=== PATIENT | male | born 1970 | race Caucasian/White ===

== ENCOUNTER 2020-11-19 00:42 | Emergency (ER) | payer MEDICAID ==
[~2020-11-19] VITALS: Ht 170.2 cm; Wt 78.6 kg
[~2020-11-19 00:42] MED LIST: AMLO-257 PO; DOXY100C PO; PHOSLOC PO
[2020-11-19 01:16] LABS: BASOPHILS % (AUTO) 0.5 % (0.0-2.0); EOSINOPHILS % (AUTO) 0.4 % (1.0-6.0); HEMOGLOBIN 12.5 g/dL (13.5-17.5); LYMPHOCYTES # (AUTO) 1.9 K/uL (1.0-4.8); LYMPHOCYTES % (AUTO) 17.4 % (22.0-44.0); MEAN CORPUSCULAR HEMOGLOBIN 27.4 pg (26.0-34.0); MEAN CORPUSCULAR HGB CONC 33.8 G/dL (31.0-37.0); MEAN CORPUSCULAR VOLUME 81 fL (80-100); MONOCYTES # (AUTO) 1.3 K/uL (0.1-1.0); MONOCYTES % (AUTO) 11.9 % (2.0-9.0); NEUTROPHILS # (AUTO) 7.4 K/uL (1.8-7.7); NEUTROPHILS % (AUTO) 69.8 % (40.0-70.0); PLATELET COUNT (AUTO) 298 K/uL (150-450); RED BLOOD CELL COUNT(AUTO) 4.57 MIL/uL (4.50-5.90); RED CELL DISTRIBUTION WIDTH 14.3 % (11.5-14.5)
[2020-11-19] MEDS: ACETAMINOPHEN 500 MG TABLET PO ONE ×2 (01:22→01:46)
[2020-11-19 01:30] LABS: ANION GAP 14 mmol/L (8-16); CALCIUM, TOTAL 9.2 mg/dL (8.8-10.5); CARBON DIOXIDE 24 mmol/L (22-29); CHLORIDE 101 mmol/L (98-107); GLOMERULAR FILTR. RATE CALC > 60 mL/min (>60); GLUCOSE,RANDOM 101 mg/dL (70-110); POTASSIUM 3.6 mmol/L (3.5-5.1); SODIUM SERUM 139 mmol/L (136-145); UREA NITROGEN, BLOOD 24 mg/dL (7-18)
[2020-11-19] MEDS ORDERED: LIDOCAINE 5% TRANSDERMAL PATCH TD ONE (01:30)
[2020-11-19] MEDS ORDERED: KETOROLAC TROMETHAMINE 30 MG/ML VIAL IM ONE (01:30)
[2020-11-19 01:35] LABS: ALANINE AMINOTRANSFERASE 58 U/L (12-78); ALBUMIN 3.6 g/dL (3.4-5.0); ALKALINE PHOSPHATASE 75 U/L (46-116); ASPARTATE AMINOTRANSFERASE 49 U/L (15-37); TOTAL PROTEIN, SERUM 7.5 g/dL (6.4-8.2)
[2020-11-19] MEDS ORDERED: PARO10TA89 PO (02:08)
[2020-11-19] MEDS ORDERED: HYDR-4072 PO (02:08)
[2020-11-19] MEDS ORDERED: GABA-1181 PO (02:08)
[2020-11-19 02:35] VITALS: BP 137/69
== END 2020-11-19 03:22 | disposition home or self-care (01) ==
LOC: EMS 00:46
DX: G89.29 Other chronic pain (principal); M79.671 Pain in right foot; M79.672 Pain in left foot; F15.10 Other stimulant abuse, uncomplicated; F41.9 Anxiety disorder, unspecified; Z86.73 Personal history of transient ischemic attack (TIA), and cerebral infarction without residual deficits
CPT/HCPCS: 36415; 80053; 85025; 99283; G0480

== ENCOUNTER 2020-12-27 12:15 | Inpatient (IN) | payer MEDICAID ==
[~2020-12-27] VITALS: Ht 173.7 cm; Wt 78.6 kg
[~2020-12-27 12:15] MED LIST changes: -AMLO-257 PO; -DOXY100C PO; +GABA-1181 PO; +HYDR-4072 PO; +PARO10TA89 PO; -PHOSLOC PO
[2020-12-27 16:23] VITALS: BP 133/91
[2020-12-27] MEDS ORDERED: ZOLPIDEM TARTRATE 10 MG TABLET PO PRN (17:15)
[2020-12-27] MEDS ORDERED: HALOPERIDOL 5 MG TABLET PO PRN (17:15)
[2020-12-27] MEDS ORDERED: ACETAMINOPHEN 325 MG TABLET PO PRN (17:30)
[2020-12-27] MEDS: OLANZapine 5 MG TABLET PO SCH (19:44)
[2020-12-27] MEDS: LORazepam 2 MG TABLET PO PRN (20:15)
[2020-12-27] MEDS: MIRTAZAPINE 30 MG TABLET PO SCH (21:00)
[2020-12-28 05:56] LABS: BASOPHILS % (AUTO) 1.1 % (0.0-2.0); EOSINOPHILS % (AUTO) 3.7 % (1.0-6.0); HEMOGLOBIN 14.7 g/dL (13.5-17.5); LYMPHOCYTES # (AUTO) 1.6 K/uL (1.0-4.8); LYMPHOCYTES % (AUTO) 29.5 % (22.0-44.0); MEAN CORPUSCULAR HEMOGLOBIN 27.3 pg (26.0-34.0); MEAN CORPUSCULAR HGB CONC 34.1 G/dL (31.0-37.0); MEAN CORPUSCULAR VOLUME 80 fL (80-100); MONOCYTES # (AUTO) 0.6 K/uL (0.1-1.0); MONOCYTES % (AUTO) 11.9 % (2.0-9.0); NEUTROPHILS # (AUTO) 2.8 K/uL (1.8-7.7); NEUTROPHILS % (AUTO) 53.8 % (40.0-70.0); PLATELET COUNT (AUTO) 409 K/uL (150-450); RED BLOOD CELL COUNT(AUTO) 5.37 MIL/uL (4.50-5.90); RED CELL DISTRIBUTION WIDTH 13.8 % (11.5-14.5)
[2020-12-28 06:11] LABS: ALANINE AMINOTRANSFERASE 49 U/L (12-78); ALBUMIN 3.3 g/dL (3.4-5.0); ALKALINE PHOSPHATASE 77 U/L (46-116); ANION GAP 6 mmol/L (8-16); ASPARTATE AMINOTRANSFERASE 28 U/L (15-37); BILIRUBIN,TOTAL 0.3 mg/dL (0.1-1.0); CALCIUM, TOTAL 8.7 mg/dL (8.8-10.5); CARBON DIOXIDE 28 mmol/L (22-29); CHLORIDE 101 mmol/L (98-107); CREATININE 0.86 mg/dL (0.60-1.30); GLOMERULAR FILTR. RATE CALC > 60 mL/min (>60); GLUCOSE,RANDOM 88 mg/dL (70-110); SODIUM SERUM 135 mmol/L (136-145); TOTAL PROTEIN, SERUM 6.9 g/dL (6.4-8.2); UREA NITROGEN, BLOOD 17 mg/dL (7-18)
[2020-12-28] MEDS ORDERED: CloNIDine HCL 0.1 MG TABLET PO PRN (08:15)
[2020-12-28] MEDS ORDERED: PETROLATUM,WHITE 28 GM JELLY TP PRN (08:15)
[2020-12-28] MEDS ORDERED: NICOTINE 14 MG/24 HOUR PATCH TD PRN (08:15)
[2020-12-28] MEDS ORDERED: GuaiFENesin/D-METHORPHAN [SUGAR-FREE] 200-20MG/10 ML SYRUP UDCUP PO PRN (08:15)
[2020-12-28] MEDS ORDERED: DOCUSATE SODIUM 100 MG CAPSULE PO PRN (08:15)
[2020-12-28] MEDS ORDERED: ONDANSETRON HCL 4 MG TABLET PO PRN (08:15)
[2020-12-28] MEDS ORDERED: ALBUTEROL SULFATE HFA 90 MCG/PUFF 8 GM INHALER IH PRN (08:15)
[2020-12-28] MEDS ORDERED: LOPERAMIDE HCL 2 MG CAPSULE PO PRN (08:15)
[2020-12-28] MEDS ORDERED: MAGNESIUM HYDROXIDE SUSPENSION 30 ML UDCUP PO PRN (08:15)
[2020-12-28] MEDS ORDERED: MAG HYDROX/AL HYDROX/SIMETH ES 30 ML SUSPENSION UDCUP PO PRN (08:15)
[2020-12-28 09:47] VITALS: BP 133/88
[2020-12-28] MEDS: OLANZapine 5 MG TABLET PO SCH ×2 (10:08→16:48)
[2020-12-28] MEDS: GABAPENTIN 300 MG CAPSULE PO SCH ×2 (10:08→16:48)
[2020-12-28] MEDS: LORazepam 2 MG TABLET PO PRN (10:16)
[2020-12-28] MEDS: IBUPROFEN 400 MG TABLET PO PRN (10:23)
[2020-12-28 16:00] VITALS: BP 121/76
[2020-12-28] MEDS: MIRTAZAPINE 30 MG TABLET PO SCH (20:31)
[2020-12-29] MEDS: OLANZapine 5 MG TABLET PO SCH ×2 (09:00→20:28)
[2020-12-29] MEDS: MULTIVITAMINS WITH MINERALS, THERAPEUTIC TABLET PO SCH (09:09)
[2020-12-29] MEDS: GABAPENTIN 300 MG CAPSULE PO SCH ×2 (09:09→16:48)
[2020-12-29] MEDS: LORazepam 2 MG TABLET PO PRN ×2 (09:14→20:28)
[2020-12-29 10:21] VITALS: BP 149/76
[2020-12-29 16:00] VITALS: BP 128/75
[2020-12-29 20:00] VITALS: BP 119/73
[2020-12-30 09:36] VITALS: BP 112/70
[2020-12-30] MEDS: MULTIVITAMINS WITH MINERALS, THERAPEUTIC TABLET PO SCH (10:00)
[2020-12-30] MEDS: GABAPENTIN 300 MG CAPSULE PO SCH ×2 (10:00→17:00)
[2020-12-30 16:18] VITALS: BP 129/78
[2020-12-30] MEDS: LORazepam 2 MG TABLET PO PRN (16:54)
[2020-12-30] MEDS: OLANZapine 5 MG TABLET PO SCH (21:07)
[2020-12-31 08:30] VITALS: BP 122/68
[2020-12-31] MEDS: GABAPENTIN 300 MG CAPSULE PO SCH ×2 (08:31→16:11)
[2020-12-31] MEDS: MULTIVITAMINS WITH MINERALS, THERAPEUTIC TABLET PO SCH (08:31)
[2020-12-31] MEDS: LORazepam 2 MG TABLET PO PRN ×2 (08:37→20:45)
[2020-12-31] MEDS: IBUPROFEN 400 MG TABLET PO PRN (08:37)
[2020-12-31 08:50] VITALS: BP 122/68
[2020-12-31 09:35] VITALS: BP 121/67
[2020-12-31 16:19] VITALS: BP 130/76
[2020-12-31 17:23] VITALS: BP 112/75
[2020-12-31] MEDS: TraMADol HCL 50 MG TABLET PO PRN (17:23)
[2020-12-31] MEDS: OLANZapine 5 MG TABLET PO SCH (20:41)
[2021-01-01] MEDS: GABAPENTIN 300 MG CAPSULE PO SCH ×2 (09:22→16:46)
[2021-01-01] MEDS: MULTIVITAMINS WITH MINERALS, THERAPEUTIC TABLET PO SCH (09:22)
[2021-01-01 09:45] VITALS: BP 123/65
[2021-01-01] MEDS: TraMADol HCL 50 MG TABLET PO PRN (09:48)
[2021-01-01 10:48] VITALS: BP 120/70
[2021-01-01] MEDS: LORazepam 2 MG TABLET PO PRN ×2 (10:49→20:07)
[2021-01-01 14:50] VITALS: BP 130/78
[2021-01-01] MEDS: HYDROCODONE/ACETAMINOPHEN 5-325 MG TABLET PO PRN (14:56)
[2021-01-01 16:12] VITALS: BP 115/78
[2021-01-01] MEDS: CEPHALEXIN MONOHYDRATE 500 MG CAPSULE PO SCH (16:46)
[2021-01-01] MEDS: SULFAMETHOX/TRIMETH DS 800-160 MG/TABLET PO SCH (16:46)
[2021-01-01] MEDS: OLANZapine 5 MG TABLET PO SCH (20:07)
[2021-01-02] MEDS: MULTIVITAMINS WITH MINERALS, THERAPEUTIC TABLET PO SCH (08:21)
[2021-01-02] MEDS: GABAPENTIN 300 MG CAPSULE PO SCH ×2 (08:21→16:26)
[2021-01-02] MEDS: CEPHALEXIN MONOHYDRATE 500 MG CAPSULE PO SCH ×3 (08:21→16:26)
[2021-01-02] MEDS: SULFAMETHOX/TRIMETH DS 800-160 MG/TABLET PO SCH ×2 (08:21→16:26)
[2021-01-02 09:08] VITALS: BP 130/75
[2021-01-02] MEDS: HYDROCODONE/ACETAMINOPHEN 5-325 MG TABLET PO PRN ×2 (10:39→19:45)
[2021-01-02] MEDS: LORazepam 2 MG TABLET PO PRN ×2 (14:05→20:37)
[2021-01-02 15:59] LABS: COVID AG,FIA SOURCE NASOPHARYNGEAL
[2021-01-02 16:39] VITALS: BP 119/70
[2021-01-02 19:45] VITALS: BP 139/72
[2021-01-02] MEDS: OLANZapine 5 MG TABLET PO SCH (20:36)
[2021-01-03 09:17] VITALS: BP 110/63
[2021-01-03] MEDS: CEPHALEXIN MONOHYDRATE 500 MG CAPSULE PO SCH ×3 (10:21→16:27)
[2021-01-03] MEDS: MULTIVITAMINS WITH MINERALS, THERAPEUTIC TABLET PO SCH (10:21)
[2021-01-03] MEDS: GABAPENTIN 300 MG CAPSULE PO SCH ×2 (10:21→16:27)
[2021-01-03] MEDS: SULFAMETHOX/TRIMETH DS 800-160 MG/TABLET PO SCH ×2 (10:21→16:27)
[2021-01-03 10:23] VITALS: BP 113/62
[2021-01-03] MEDS: HYDROCODONE/ACETAMINOPHEN 5-325 MG TABLET PO PRN ×2 (10:23→20:17)
[2021-01-03 11:23] VITALS: BP 122/65
[2021-01-03 16:15] VITALS: BP 126/67
[2021-01-03] MEDS: LORazepam 2 MG TABLET PO PRN (17:02)
[2021-01-03 17:07] VITALS: BP 126/78
[2021-01-03] MEDS: OLANZapine 5 MG TABLET PO SCH (21:17)
[2021-01-04 08:15] VITALS: BP 139/88
[2021-01-04] MEDS: HYDROCODONE/ACETAMINOPHEN 5-325 MG TABLET PO PRN ×2 (08:20→20:38)
[2021-01-04] MEDS: CEPHALEXIN MONOHYDRATE 500 MG CAPSULE PO SCH ×3 (08:20→16:57)
[2021-01-04] MEDS: SULFAMETHOX/TRIMETH DS 800-160 MG/TABLET PO SCH ×2 (08:20→16:57)
[2021-01-04] MEDS: MULTIVITAMINS WITH MINERALS, THERAPEUTIC TABLET PO SCH (08:20)
[2021-01-04] MEDS: GABAPENTIN 300 MG CAPSULE PO SCH ×2 (08:20→16:57)
[2021-01-04] MEDS: ACETAMINOPHEN 325 MG TABLET PO PRN (11:23)
[2021-01-04] MEDS: LORazepam 2 MG TABLET PO PRN ×2 (11:23→21:57)
[2021-01-04 16:00] VITALS: BP 117/75
[2021-01-04 20:38] VITALS: BP 126/72
[2021-01-04 21:38] VITALS: BP 120/70
[2021-01-04] MEDS: OLANZapine 5 MG TABLET PO SCH (21:55)
[2021-01-05 02:31] VITALS: BP 113/74
[2021-01-05] MEDS: SULFAMETHOX/TRIMETH DS 800-160 MG/TABLET PO SCH ×2 (08:18→17:00)
[2021-01-05] MEDS: MULTIVITAMINS WITH MINERALS, THERAPEUTIC TABLET PO SCH (08:18)
[2021-01-05] MEDS: GABAPENTIN 300 MG CAPSULE PO SCH ×2 (08:18→17:00)
[2021-01-05] MEDS: CEPHALEXIN MONOHYDRATE 500 MG CAPSULE PO SCH ×3 (08:18→17:00)
[2021-01-05] MEDS: HYDROCODONE/ACETAMINOPHEN 5-325 MG TABLET PO PRN ×2 (08:18→16:27)
[2021-01-05 08:55] VITALS: BP 131/75
[2021-01-05 09:18] VITALS: BP 126/76
[2021-01-05] MEDS: LORazepam 2 MG TABLET PO PRN ×3 (09:32→21:02)
[2021-01-05 16:12] VITALS: BP 116/76
[2021-01-05] MEDS: OLANZapine 5 MG TABLET PO SCH (20:22)
[2021-01-05 21:01] VITALS: BP 102/64
[2021-01-06 06:01] VITALS: BP 115/82
[2021-01-06 08:14] VITALS: BP 128/76
[2021-01-06] MEDS: LORazepam 2 MG TABLET PO PRN ×2 (08:14→14:45)
[2021-01-06] MEDS: GABAPENTIN 300 MG CAPSULE PO SCH ×2 (08:14→17:29)
[2021-01-06] MEDS: HYDROCODONE/ACETAMINOPHEN 5-325 MG TABLET PO PRN (08:14)
[2021-01-06] MEDS: MULTIVITAMINS WITH MINERALS, THERAPEUTIC TABLET PO SCH (08:14)
[2021-01-06] MEDS: CEPHALEXIN MONOHYDRATE 500 MG CAPSULE PO SCH ×3 (08:14→17:29)
[2021-01-06] MEDS: SULFAMETHOX/TRIMETH DS 800-160 MG/TABLET PO SCH ×2 (08:14→17:29)
[2021-01-06] MEDS: IBUPROFEN 400 MG TABLET PO PRN (11:41)
[2021-01-06 16:31] VITALS: BP 102/63
[2021-01-06 21:10] VITALS: BP 139/88
[2021-01-06] MEDS: OLANZapine 5 MG TABLET PO SCH (21:10)
[2021-01-06] MEDS: HYDROCODONE/ACETAMINOPHEN 10-325 MG TABLET PO PRN (21:10)
[2021-01-06 22:10] VITALS: BP_SYST 122; BP_SYST 125; BP_DIAS 75; BP_DIAS 88
[2021-01-07] MEDS: SULFAMETHOX/TRIMETH DS 800-160 MG/TABLET PO SCH ×2 (08:06→16:55)
[2021-01-07] MEDS: GABAPENTIN 300 MG CAPSULE PO SCH ×2 (08:06→16:55)
[2021-01-07] MEDS: CEPHALEXIN MONOHYDRATE 500 MG CAPSULE PO SCH ×3 (08:06→16:55)
[2021-01-07] MEDS: MULTIVITAMINS WITH MINERALS, THERAPEUTIC TABLET PO SCH (08:06)
[2021-01-07] MEDS: HYDROCODONE/ACETAMINOPHEN 10-325 MG TABLET PO PRN ×2 (08:07→16:55)
[2021-01-07 08:13] VITALS: BP 128/94
[2021-01-07 09:07] VITALS: BP 123/97
[2021-01-07] MEDS ORDERED: ZOLPIDEM TARTRATE 10 MG TABLET PO PRN (11:30)
[2021-01-07] MEDS: LORazepam 2 MG TABLET PO PRN ×2 (12:36→20:44)
[2021-01-07 16:21] VITALS: BP 116/66
[2021-01-07] MEDS: OLANZapine 5 MG TABLET PO SCH (20:38)
[2021-01-08] MEDS: GABAPENTIN 300 MG CAPSULE PO SCH ×2 (08:04→16:50)
[2021-01-08] MEDS: SULFAMETHOX/TRIMETH DS 800-160 MG/TABLET PO SCH ×2 (08:04→16:50)
[2021-01-08] MEDS: CEPHALEXIN MONOHYDRATE 500 MG CAPSULE PO SCH ×3 (08:04→16:50)
[2021-01-08] MEDS: MULTIVITAMINS WITH MINERALS, THERAPEUTIC TABLET PO SCH (08:04)
[2021-01-08 09:01] VITALS: BP 130/81
[2021-01-08] MEDS: HYDROCODONE/ACETAMINOPHEN 10-325 MG TABLET PO PRN ×2 (09:01→19:06)
[2021-01-08 10:01] VITALS: BP 121/88
[2021-01-08] MEDS: LORazepam 2 MG TABLET PO PRN ×2 (11:42→20:45)
[2021-01-08 14:50] LABS: COVID AG,FIA SOURCE NASOPHARYNGEAL
[2021-01-08 16:00] VITALS: BP 104/78
[2021-01-08 19:06] VITALS: BP 121/84
[2021-01-08] MEDS: OLANZapine 5 MG TABLET PO SCH (20:45)
[2021-01-08] MEDS: ACETAMINOPHEN 325 MG TABLET PO PRN (23:01)
[2021-01-09 06:29] VITALS: BP 124/98
[2021-01-09] MEDS: HYDROCODONE/ACETAMINOPHEN 10-325 MG TABLET PO PRN ×2 (06:29→17:51)
[2021-01-09 08:33] VITALS: BP 132/76
[2021-01-09] MEDS: GABAPENTIN 300 MG CAPSULE PO SCH ×2 (08:59→16:26)
[2021-01-09] MEDS: SULFAMETHOX/TRIMETH DS 800-160 MG/TABLET PO SCH ×2 (08:59→16:27)
[2021-01-09] MEDS: MULTIVITAMINS WITH MINERALS, THERAPEUTIC TABLET PO SCH (08:59)
[2021-01-09] MEDS: CEPHALEXIN MONOHYDRATE 500 MG CAPSULE PO SCH ×3 (08:59→16:27)
[2021-01-09] MEDS: LORazepam 2 MG TABLET PO PRN ×3 (09:10→20:14)
[2021-01-09 16:32] VITALS: BP 101/60
[2021-01-09 17:52] VITALS: BP 112/69
[2021-01-09] MEDS: OLANZapine 5 MG TABLET PO SCH (20:14)
[2021-01-10 05:12] VITALS: BP 116/72
[2021-01-10] MEDS: HYDROCODONE/ACETAMINOPHEN 10-325 MG TABLET PO PRN ×2 (05:33→15:05)
[2021-01-10 08:00] VITALS: BP 126/77
[2021-01-10] MEDS: LORazepam 2 MG TABLET PO PRN ×2 (08:56→20:31)
[2021-01-10] MEDS: SULFAMETHOX/TRIMETH DS 800-160 MG/TABLET PO SCH ×2 (08:56→20:31)
[2021-01-10] MEDS: MULTIVITAMINS WITH MINERALS, THERAPEUTIC TABLET PO SCH (08:56)
[2021-01-10] MEDS: CEPHALEXIN MONOHYDRATE 500 MG CAPSULE PO SCH ×3 (08:56→20:31)
[2021-01-10] MEDS: GABAPENTIN 300 MG CAPSULE PO SCH ×2 (08:56→20:31)
[2021-01-10 15:06] VITALS: BP 104/56
[2021-01-10 16:47] VITALS: BP 129/85
[2021-01-10] MEDS: OLANZapine 5 MG TABLET PO SCH (20:31)
[2021-01-11] MEDS: HYDROCODONE/ACETAMINOPHEN 10-325 MG TABLET PO PRN ×2 (06:12→16:13)
[2021-01-11 06:17] VITALS: BP 119/77
[2021-01-11] MEDS: CEPHALEXIN MONOHYDRATE 500 MG CAPSULE PO SCH ×2 (08:26→13:30)
[2021-01-11] MEDS: SULFAMETHOX/TRIMETH DS 800-160 MG/TABLET PO SCH (08:26)
[2021-01-11] MEDS: MULTIVITAMINS WITH MINERALS, THERAPEUTIC TABLET PO SCH (08:26)
[2021-01-11] MEDS: GABAPENTIN 300 MG CAPSULE PO SCH ×2 (08:26→16:13)
[2021-01-11 08:29] VITALS: BP 116/84
[2021-01-11] MEDS: LORazepam 2 MG TABLET PO PRN ×2 (09:56→20:08)
[2021-01-11 16:33] VITALS: BP 104/59
[2021-01-11] MEDS: OLANZapine 5 MG TABLET PO SCH (20:08)
[2021-01-12 00:25] VITALS: BP 124/88
[2021-01-12] MEDS: HYDROCODONE/ACETAMINOPHEN 10-325 MG TABLET PO PRN ×3 (00:30→16:09)
[2021-01-12] MEDS: MULTIVITAMINS WITH MINERALS, THERAPEUTIC TABLET PO SCH (08:06)
[2021-01-12] MEDS: LORazepam 2 MG TABLET PO PRN ×2 (08:06→20:34)
[2021-01-12] MEDS: GABAPENTIN 300 MG CAPSULE PO SCH ×2 (08:06→16:09)
[2021-01-12 08:50] VITALS: BP 140/99
[2021-01-12 16:10] VITALS: BP 117/75
[2021-01-12 16:52] VITALS: BP 117/75
[2021-01-12] MEDS: OLANZapine 5 MG TABLET PO SCH (20:34)
[2021-01-13 05:30] VITALS: BP 105/77
[2021-01-13] MEDS: HYDROCODONE/ACETAMINOPHEN 10-325 MG TABLET PO PRN ×2 (05:32→16:03)
[2021-01-13 08:00] VITALS: BP 110/72
[2021-01-13] MEDS: GABAPENTIN 300 MG CAPSULE PO SCH ×2 (08:59→16:04)
[2021-01-13] MEDS: LORazepam 2 MG TABLET PO PRN ×2 (08:59→20:35)
[2021-01-13] MEDS: MULTIVITAMINS WITH MINERALS, THERAPEUTIC TABLET PO SCH (08:59)
[2021-01-13 16:48] VITALS: BP 142/69
[2021-01-13] MEDS: OLANZapine 5 MG TABLET PO SCH (20:35)
[2021-01-14 01:50] VITALS: BP 116/77
[2021-01-14 03:40] VITALS: BP 116/77
[2021-01-14] MEDS: HYDROCODONE/ACETAMINOPHEN 10-325 MG TABLET PO PRN ×3 (03:45→21:23)
[2021-01-14] MEDS: GABAPENTIN 300 MG CAPSULE PO SCH ×2 (08:06→17:01)
[2021-01-14] MEDS: MULTIVITAMINS WITH MINERALS, THERAPEUTIC TABLET PO SCH (08:06)
[2021-01-14] MEDS: LORazepam 2 MG TABLET PO PRN ×2 (08:06→20:20)
[2021-01-14 08:12] VITALS: BP 112/68
[2021-01-14] MEDS: SULFAMETHOX/TRIMETH DS 800-160 MG/TABLET PO SCH ×2 (11:31→17:01)
[2021-01-14] MEDS: CEPHALEXIN MONOHYDRATE 500 MG CAPSULE PO SCH ×2 (12:45→17:01)
[2021-01-14 13:05] VITALS: BP 143/103
[2021-01-14 14:04] VITALS: BP 108/77
[2021-01-14 16:14] VITALS: BP 117/80
[2021-01-14] MEDS: OLANZapine 5 MG TABLET PO SCH (20:20)
[2021-01-15 05:20] VITALS: BP 107/70
[2021-01-15] MEDS: HYDROCODONE/ACETAMINOPHEN 10-325 MG TABLET PO PRN ×3 (05:23→21:52)
[2021-01-15] MEDS: GABAPENTIN 300 MG CAPSULE PO SCH ×2 (08:58→16:16)
[2021-01-15] MEDS: SULFAMETHOX/TRIMETH DS 800-160 MG/TABLET PO SCH ×2 (08:58→16:16)
[2021-01-15] MEDS: CEPHALEXIN MONOHYDRATE 500 MG CAPSULE PO SCH ×3 (08:58→16:16)
[2021-01-15] MEDS: MULTIVITAMINS WITH MINERALS, THERAPEUTIC TABLET PO SCH (08:58)
[2021-01-15] MEDS: LORazepam 2 MG TABLET PO PRN (08:58)
[2021-01-15 09:12] VITALS: BP 110/75
[2021-01-15 09:40] LABS: COVID AG,FIA SOURCE NASOPHARYNGEAL
[2021-01-15 13:47] VITALS: BP 105/76
[2021-01-15 14:47] VITALS: BP 125/82
[2021-01-15 16:00] VITALS: BP 118/72
[2021-01-15] MEDS: OLANZapine 5 MG TABLET PO SCH (21:52)
[2021-01-15 21:58] VITALS: BP 107/71
[2021-01-16 06:14] VITALS: BP 123/75
[2021-01-16] MEDS: HYDROCODONE/ACETAMINOPHEN 10-325 MG TABLET PO PRN ×2 (06:14→14:37)
[2021-01-16] MEDS: SULFAMETHOX/TRIMETH DS 800-160 MG/TABLET PO SCH ×2 (08:08→16:08)
[2021-01-16] MEDS: MULTIVITAMINS WITH MINERALS, THERAPEUTIC TABLET PO SCH (08:09)
[2021-01-16] MEDS: GABAPENTIN 300 MG CAPSULE PO SCH ×2 (08:09→16:08)
[2021-01-16] MEDS: LORazepam 2 MG TABLET PO PRN ×3 (08:09→20:16)
[2021-01-16] MEDS: CEPHALEXIN MONOHYDRATE 500 MG CAPSULE PO SCH ×3 (08:09→16:08)
[2021-01-16 10:19] VITALS: BP 26/75
[2021-01-16 14:37] VITALS: BP 111/74
[2021-01-16 16:42] VITALS: BP 110/76
[2021-01-16] MEDS: OLANZapine 5 MG TABLET PO SCH (20:16)
[2021-01-17 03:49] VITALS: BP 111/71
[2021-01-17] MEDS: HYDROCODONE/ACETAMINOPHEN 10-325 MG TABLET PO PRN ×3 (03:49→20:08)
[2021-01-17 08:20] VITALS: BP 96/68
[2021-01-17] MEDS: GABAPENTIN 300 MG CAPSULE PO SCH ×2 (08:50→16:35)
[2021-01-17] MEDS: SULFAMETHOX/TRIMETH DS 800-160 MG/TABLET PO SCH ×2 (08:50→16:35)
[2021-01-17] MEDS: CEPHALEXIN MONOHYDRATE 500 MG CAPSULE PO SCH ×3 (08:50→16:35)
[2021-01-17] MEDS: MULTIVITAMINS WITH MINERALS, THERAPEUTIC TABLET PO SCH (08:50)
[2021-01-17] MEDS: LORazepam 2 MG TABLET PO PRN ×2 (08:56→21:34)
[2021-01-17 12:13] VITALS: BP 113/66
[2021-01-17] MEDS: BuPROPion HCL XL 150 MG ER TABLET PO SCH (13:50)
[2021-01-17 16:06] VITALS: BP 112/62
[2021-01-17] MEDS: OLANZapine 5 MG TABLET PO SCH (21:33)
[2021-01-18 05:45] VITALS: BP 113/71
[2021-01-18] MEDS: HYDROCODONE/ACETAMINOPHEN 10-325 MG TABLET PO PRN ×3 (05:50→22:07)
[2021-01-18 08:07] VITALS: BP 114/75
[2021-01-18] MEDS: MULTIVITAMINS WITH MINERALS, THERAPEUTIC TABLET PO SCH (08:43)
[2021-01-18] MEDS: BuPROPion HCL XL 150 MG ER TABLET PO SCH (08:43)
[2021-01-18] MEDS: GABAPENTIN 300 MG CAPSULE PO SCH ×2 (08:44→16:46)
[2021-01-18] MEDS: CEPHALEXIN MONOHYDRATE 500 MG CAPSULE PO SCH (08:44)
[2021-01-18] MEDS: SULFAMETHOX/TRIMETH DS 800-160 MG/TABLET PO SCH (08:44)
[2021-01-18] MEDS: LORazepam 2 MG TABLET PO PRN ×2 (09:46→16:46)
[2021-01-18 14:07] VITALS: BP 112/73
[2021-01-18 16:00] VITALS: BP 99/62
[2021-01-18] MEDS: OLANZapine 5 MG TABLET PO SCH (20:34)
[2021-01-18 22:07] VITALS: BP 110/69
[2021-01-19 06:00] VITALS: BP 113/75
[2021-01-19] MEDS: HYDROCODONE/ACETAMINOPHEN 10-325 MG TABLET PO PRN ×3 (06:12→22:08)
[2021-01-19 08:00] VITALS: BP 111/73
[2021-01-19] MEDS: MULTIVITAMINS WITH MINERALS, THERAPEUTIC TABLET PO SCH (09:29)
[2021-01-19] MEDS: BuPROPion HCL XL 150 MG ER TABLET PO SCH (09:29)
[2021-01-19] MEDS: GABAPENTIN 300 MG CAPSULE PO SCH ×2 (09:29→16:28)
[2021-01-19] MEDS: LORazepam 2 MG TABLET PO PRN ×2 (10:08→20:09)
[2021-01-19 14:10] VITALS: BP 125/80
[2021-01-19 16:32] VITALS: BP 118/79
[2021-01-19] MEDS: OLANZapine 5 MG TABLET PO SCH (20:27)
[2021-01-20 04:30] VITALS: BP 113/63
[2021-01-20] MEDS: HYDROCODONE/ACETAMINOPHEN 10-325 MG TABLET PO PRN ×3 (06:08→22:23)
[2021-01-20 08:56] VITALS: BP 114/71
[2021-01-20] MEDS: GABAPENTIN 300 MG CAPSULE PO SCH ×2 (09:12→16:34)
[2021-01-20] MEDS: BuPROPion HCL XL 150 MG ER TABLET PO SCH (09:12)
[2021-01-20] MEDS: MULTIVITAMINS WITH MINERALS, THERAPEUTIC TABLET PO SCH (09:12)
[2021-01-20] MEDS: LORazepam 2 MG TABLET PO PRN ×2 (09:39→20:24)
[2021-01-20 14:29] VITALS: BP 149/87
[2021-01-20 16:22] VITALS: BP 106/77
[2021-01-20] MEDS: OLANZapine 5 MG TABLET PO SCH (20:24)
[2021-01-21] MEDS: HYDROCODONE/ACETAMINOPHEN 10-325 MG TABLET PO PRN ×3 (06:24→23:02)
[2021-01-21 06:28] VITALS: BP 117/80
[2021-01-21 08:00] VITALS: BP 122/86
[2021-01-21] MEDS: LORazepam 2 MG TABLET PO PRN ×3 (08:58→21:32)
[2021-01-21] MEDS: GABAPENTIN 300 MG CAPSULE PO SCH ×2 (08:58→16:59)
[2021-01-21] MEDS: MULTIVITAMINS WITH MINERALS, THERAPEUTIC TABLET PO SCH (08:58)
[2021-01-21] MEDS: BuPROPion HCL XL 150 MG ER TABLET PO SCH (08:58)
[2021-01-21] MEDS: NEOMYCIN/BACITRACIN/POLYMYXIN B 30 GM OINTMENT TP SCH (10:35)
[2021-01-21 14:30] VITALS: BP 120/81
[2021-01-21 16:25] VITALS: BP 140/82
[2021-01-21] MEDS: OLANZapine 5 MG TABLET PO SCH (21:00)
[2021-01-21 23:00] VITALS: BP 132/86
[2021-01-22 04:46] VITALS: BP 123/80
[2021-01-22 07:04] VITALS: BP 111/70
[2021-01-22] MEDS: HYDROCODONE/ACETAMINOPHEN 10-325 MG TABLET PO PRN ×2 (07:04→15:06)
[2021-01-22] MEDS: LORazepam 2 MG TABLET PO PRN ×3 (07:57→20:08)
[2021-01-22 08:04] VITALS: BP 130/87
[2021-01-22] MEDS: BuPROPion HCL XL 150 MG ER TABLET PO SCH (08:04)
[2021-01-22] MEDS: GABAPENTIN 300 MG CAPSULE PO SCH ×2 (08:04→16:20)
[2021-01-22] MEDS: MULTIVITAMINS WITH MINERALS, THERAPEUTIC TABLET PO SCH (08:04)
[2021-01-22] MEDS: NEOMYCIN/BACITRACIN/POLYMYXIN B 30 GM OINTMENT TP SCH (09:11)
[2021-01-22 11:47] LABS: COVID AG,FIA SOURCE NASOPHARYNGEAL
[2021-01-22 15:00] VITALS: BP 130/95
[2021-01-22 16:18] VITALS: BP 129/82
[2021-01-22] MEDS: OLANZapine 5 MG TABLET PO SCH (20:10)
[2021-01-23] MEDS ORDERED: PNEUMOCOCCAL VACCINE POLYVALENT 0.5 ML VIAL [PPSV23] IM. ONE (04:00)
[2021-01-23] MEDS: HYDROCODONE/ACETAMINOPHEN 10-325 MG TABLET PO PRN (04:30)
[2021-01-23 04:31] VITALS: BP 119/75
[2021-01-23] MEDS: NEOMYCIN/BACITRACIN/POLYMYXIN B 30 GM OINTMENT TP SCH (08:13)
[2021-01-23] MEDS: MULTIVITAMINS WITH MINERALS, THERAPEUTIC TABLET PO SCH (08:13)
[2021-01-23] MEDS: BuPROPion HCL XL 150 MG ER TABLET PO SCH (08:13)
[2021-01-23] MEDS: GABAPENTIN 300 MG CAPSULE PO SCH (08:13)
[2021-01-23 08:14] VITALS: BP 127/78
[2021-01-23] MEDS: LORazepam 2 MG TABLET PO PRN (08:20)
[2021-01-23] MEDS ORDERED: OLAN5TAB52 PO (09:01)
[2021-01-23] MEDS ORDERED: BUPR-93 PO (09:01)
== END 2021-01-23 10:15 | disposition home or self-care (01) | DRG 751 ==
LOC: 3EI 16:23
PROVIDERS: ADMIT Psychiatry & Neurology Psychiatry; ATTEND Psychiatry & Neurology Psychiatry
DX: F33.2 Major depressive disorder, recurrent severe without psychotic features (principal); E87.1 Hypo-osmolality and hyponatremia; R45.851 Suicidal ideations; G62.9 Polyneuropathy, unspecified; F15.90 Other stimulant use, unspecified, uncomplicated; Z20.822 Contact with and (suspected) exposure to COVID-19; G89.29 Other chronic pain; F41.9 Anxiety disorder, unspecified; L02.413 Cutaneous abscess of right upper limb; Z86.73 Personal history of transient ischemic attack (TIA), and cerebral infarction without residual deficits; Z28.21 Immunization not carried out because of patient refusal; Z79.899 Other long term (current) drug therapy
CPT/HCPCS: 80053; 85025; 87426; Q0162

== ENCOUNTER 2021-02-22 05:41 | Inpatient (IN) | payer MEDICAID ==
[~2021-02-22] VITALS: Ht 167.6 cm; Wt 78.0 kg
[~2021-02-22 05:41] MED LIST changes: +BUPR-93 PO; -HYDR-4072 PO; +OLAN5TAB52 PO; -PARO10TA89 PO
[2021-02-22] MEDS ORDERED: HALOPERIDOL 5 MG TABLET PO PRN (09:15)
[2021-02-22] MEDS: LORazepam 2 MG TABLET PO PRN ×2 (10:15→17:21)
[2021-02-22 16:22] VITALS: BP 111/76
[2021-02-22] MEDS: BACITRACIN 28 GM OINTMENT TP SCH (17:07)
[2021-02-23 03:27] VITALS: BP 138/95
[2021-02-23] MEDS: LORazepam 2 MG TABLET PO PRN ×4 (03:29→20:12)
[2021-02-23 08:11] VITALS: BP 109/69
[2021-02-23] MEDS: BACITRACIN 28 GM OINTMENT TP SCH ×2 (08:42→17:09)
[2021-02-23 16:09] VITALS: BP 104/76
[2021-02-23] MEDS ORDERED: GuaiFENesin/D-METHORPHAN [SUGAR-FREE] 200-20MG/10 ML SYRUP UDCUP PO PRN (16:45)
[2021-02-23] MEDS ORDERED: PETROLATUM,WHITE 28 GM JELLY TP PRN (16:45)
[2021-02-23] MEDS ORDERED: NICOTINE 14 MG/24 HOUR PATCH TD PRN (16:45)
[2021-02-23] MEDS ORDERED: MAGNESIUM HYDROXIDE SUSPENSION 30 ML UDCUP PO PRN (16:45)
[2021-02-23] MEDS ORDERED: DOCUSATE SODIUM 100 MG CAPSULE PO PRN (16:45)
[2021-02-23] MEDS ORDERED: ONDANSETRON HCL 4 MG TABLET PO PRN (16:45)
[2021-02-23] MEDS ORDERED: ACETAMINOPHEN 325 MG TABLET PO PRN (16:45)
[2021-02-23] MEDS ORDERED: ALBUTEROL SULFATE HFA 90 MCG/PUFF 8 GM INHALER IH PRN (16:45)
[2021-02-23] MEDS ORDERED: LOPERAMIDE HCL 2 MG CAPSULE PO PRN (16:45)
[2021-02-23] MEDS ORDERED: CloNIDine HCL 0.1 MG TABLET PO PRN (16:45)
[2021-02-23] MEDS ORDERED: MAG HYDROX/AL HYDROX/SIMETH ES 30 ML SUSPENSION UDCUP PO PRN (16:45)
[2021-02-23] MEDS: GABAPENTIN 300 MG CAPSULE PO SCH (17:08)
[2021-02-23] MEDS: OLANZapine 5 MG TABLET PO SCH (17:08)
[2021-02-24] VITALS: BP 107/65
[2021-02-24] MEDS: LORazepam 2 MG TABLET PO PRN ×3 (06:48→20:27)
[2021-02-24 08:13] VITALS: BP 106/70
[2021-02-24 08:43] LABS: BASOPHILS % (AUTO) 0.5 % (0.0-2.0); EOSINOPHILS % (AUTO) 3.1 % (1.0-6.0); HEMATOCRIT 41.1 % (41-53); HEMOGLOBIN 13.7 g/dL (13.5-17.5); LYMPHOCYTES # (AUTO) 2.2 K/uL (1.0-4.8); LYMPHOCYTES % (AUTO) 39.2 % (22.0-44.0); MEAN CORPUSCULAR HEMOGLOBIN 26.3 pg (26.0-34.0); MEAN CORPUSCULAR HGB CONC 33.4 G/dL (31.0-37.0); MEAN CORPUSCULAR VOLUME 79 fL (80-100); MONOCYTES # (AUTO) 0.6 K/uL (0.1-1.0); MONOCYTES % (AUTO) 11.4 % (2.0-9.0); NEUTROPHILS # (AUTO) 2.5 K/uL (1.8-7.7); NEUTROPHILS % (AUTO) 45.8 % (40.0-70.0); PLATELET COUNT (AUTO) 370 K/uL (150-450); RED BLOOD CELL COUNT(AUTO) 5.23 MIL/uL (4.50-5.90); RED CELL DISTRIBUTION WIDTH 14.8 % (11.5-14.5)
[2021-02-24 09:19] LABS: ALANINE AMINOTRANSFERASE 56 U/L (12-78); ALBUMIN 2.9 g/dL (3.4-5.0); ALKALINE PHOSPHATASE 71 U/L (46-116); ANION GAP 9 mmol/L (8-16); ASPARTATE AMINOTRANSFERASE 32 U/L (15-37); BILIRUBIN,TOTAL 0.3 mg/dL (0.1-1.0); CALCIUM, TOTAL 8.4 mg/dL (8.8-10.5); CARBON DIOXIDE 25 mmol/L (22-29); CHLORIDE 102 mmol/L (98-107); CHOL/HDL RATIO 3.7 (4.2-7.3); CHOLESTEROL 155 mg/dL (131-200); CREATININE 0.71 mg/dL (0.60-1.30); GLOMERULAR FILTR. RATE CALC > 60 mL/min (>60); GLUCOSE,RANDOM 80 mg/dL (70-110); HDL CHOLESTEROL 42 mg/dL (40-60); LDL CHOL (CALC.) 100 mg/dL (0-130); POTASSIUM 4.2 mmol/L (3.5-5.1); SODIUM SERUM 136 mmol/L (136-145); TOTAL PROTEIN, SERUM 6.8 g/dL (6.4-8.2); TRIGLYCERIDES 63 mg/dL (15-150); UREA NITROGEN, BLOOD 18 mg/dL (7-18)
[2021-02-24] MEDS: OLANZapine 5 MG TABLET PO SCH ×2 (09:41→16:58)
[2021-02-24] MEDS: PARoxetine HCL 20 MG TABLET PO SCH (09:41)
[2021-02-24] MEDS: GABAPENTIN 300 MG CAPSULE PO SCH ×2 (09:41→16:58)
[2021-02-24] MEDS: BACITRACIN 28 GM OINTMENT TP SCH ×2 (09:42→20:11)
[2021-02-24 10:06] LABS: THYROID STIMULATING HORMONE 1.12 uIU/mL (0.36-3.74)
[2021-02-24 16:24] VITALS: BP 122/81
[2021-02-25 00:20] VITALS: BP 134/60
[2021-02-25 08:41] VITALS: BP 120/65
[2021-02-25] MEDS: BACITRACIN 28 GM OINTMENT TP SCH ×2 (08:41→16:30)
[2021-02-25] MEDS: GABAPENTIN 300 MG CAPSULE PO SCH ×2 (08:42→16:29)
[2021-02-25] MEDS: PARoxetine HCL 20 MG TABLET PO SCH (08:42)
[2021-02-25] MEDS: OLANZapine 5 MG TABLET PO SCH ×2 (08:42→16:48)
[2021-02-25] MEDS: LORazepam 2 MG TABLET PO PRN ×3 (08:45→20:33)
[2021-02-25 16:18] VITALS: BP 123/67
[2021-02-26 00:29] VITALS: BP 124/80
[2021-02-26 08:05] VITALS: BP 114/73
[2021-02-26] MEDS ORDERED: LORazepam 1 MG TABLET ONE (08:12)
[2021-02-26] MEDS: PARoxetine HCL 20 MG TABLET PO SCH (08:45)
[2021-02-26] MEDS: GABAPENTIN 300 MG CAPSULE PO SCH ×2 (08:45→16:35)
[2021-02-26] MEDS: BACITRACIN 28 GM OINTMENT TP SCH ×2 (08:46→16:35)
[2021-02-26] MEDS: LORazepam 2 MG TABLET PO PRN (08:47)
[2021-02-26] MEDS: OLANZapine 5 MG TABLET PO SCH (09:20)
[2021-02-26 16:22] VITALS: BP 121/76
[2021-02-26] MEDS: LORazepam 1 MG TABLET PO PRN (16:36)
[2021-02-26] MEDS ORDERED: OLANZapine 5 MG TABLET PO SCH ×2 (17:00→21:00)
[2021-02-27 01:59] VITALS: BP 119/73
[2021-02-27] MEDS: PARoxetine HCL 20 MG TABLET PO SCH (08:31)
[2021-02-27] MEDS: BACITRACIN 28 GM OINTMENT TP SCH ×2 (08:31→16:39)
[2021-02-27] MEDS: GABAPENTIN 300 MG CAPSULE PO SCH ×2 (08:31→16:39)
[2021-02-27 08:44] VITALS: BP 109/67
[2021-02-27] MEDS: LORazepam 1 MG TABLET PO PRN ×2 (09:15→13:27)
[2021-02-27 16:20] VITALS: BP 108/69
[2021-02-27] MEDS ORDERED: OLANZapine 10 MG TABLET PO SCH (21:00)
[2021-02-28 01:41] VITALS: BP 118/67
[2021-02-28 06:40] VITALS: BP 135/78
[2021-02-28] MEDS: LORazepam 2 MG TABLET PO PRN ×3 (06:43→17:28)
[2021-02-28 07:40] LABS: COVID AG,FIA SOURCE NASOPHARYNGEAL
[2021-02-28 08:06] VITALS: BP 107/68
[2021-02-28] MEDS: GABAPENTIN 300 MG CAPSULE PO SCH ×2 (08:23→16:13)
[2021-02-28] MEDS: PARoxetine HCL 20 MG TABLET PO SCH (08:23)
[2021-02-28] MEDS: BACITRACIN 28 GM OINTMENT TP SCH ×2 (08:24→16:22)
[2021-02-28 16:13] VITALS: BP 120/75
[2021-02-28] MEDS: OLANZapine 10 MG RAPDIS TABLET PO SCH (20:35)
[2021-02-28] MEDS ORDERED: OLANZapine 7.5 MG TABLET PO SCH (21:00)
[2021-03-01 01:21] VITALS: BP 105/65
[2021-03-01 06:23] VITALS: BP 121/80
[2021-03-01] MEDS: LORazepam 2 MG TABLET PO PRN ×3 (06:29→16:50)
[2021-03-01 08:13] VITALS: BP 126/79
[2021-03-01] MEDS: OLANZapine 5 MG RAPDIS TABLET PO SCH (08:52)
[2021-03-01] MEDS: GABAPENTIN 300 MG CAPSULE PO SCH ×2 (08:52→16:45)
[2021-03-01] MEDS: PARoxetine HCL 20 MG TABLET PO SCH (08:52)
[2021-03-01] MEDS: BACITRACIN 28 GM OINTMENT TP SCH ×2 (08:53→16:49)
[2021-03-01 16:12] VITALS: BP 128/76
[2021-03-01] MEDS: OLANZapine 10 MG RAPDIS TABLET PO SCH (19:39)
[2021-03-01] MEDS: TraMADol HCL 50 MG TABLET PO PRN (19:39)
[2021-03-02 01:15] VITALS: BP 125/62
[2021-03-02 06:22] VITALS: BP 115/82
[2021-03-02] MEDS: TraMADol HCL 50 MG TABLET PO PRN ×2 (06:28→16:22)
[2021-03-02] MEDS: LORazepam 2 MG TABLET PO PRN ×2 (06:28→11:50)
[2021-03-02] MEDS: THIAMINE 100 MG TABLET PO SCH (08:23)
[2021-03-02] MEDS: GABAPENTIN 300 MG CAPSULE PO SCH ×2 (08:24→16:22)
[2021-03-02] MEDS: FOLIC ACID 1 MG TABLET PO SCH (08:24)
[2021-03-02] MEDS: MULTIVITAMINS WITH MINERALS, THERAPEUTIC TABLET PO SCH (08:24)
[2021-03-02] MEDS: PARoxetine HCL 20 MG TABLET PO SCH (08:24)
[2021-03-02 08:27] VITALS: BP 114/71
[2021-03-02] MEDS: BACITRACIN 28 GM OINTMENT TP SCH ×2 (08:33→16:21)
[2021-03-02] MEDS: OLANZapine 5 MG RAPDIS TABLET PO SCH (08:33)
[2021-03-02] MEDS ORDERED: HydrOXYzine PAMOATE 50 MG CAPSULE PO PRN (13:15)
[2021-03-02 16:26] VITALS: BP 113/76
[2021-03-02] MEDS: ZOLPIDEM TARTRATE 10 MG TABLET PO PRN (20:28)
[2021-03-02] MEDS: OLANZapine 10 MG RAPDIS TABLET PO SCH (20:28)
[2021-03-03 01:21] VITALS: BP 121/79
[2021-03-03 07:00] VITALS: BP 136/84
[2021-03-03] MEDS: TraMADol HCL 50 MG TABLET PO PRN ×2 (07:05→15:26)
[2021-03-03 08:49] VITALS: BP 116/90
[2021-03-03] MEDS: GABAPENTIN 300 MG CAPSULE PO SCH ×2 (09:48→16:51)
[2021-03-03] MEDS: FOLIC ACID 1 MG TABLET PO SCH (09:48)
[2021-03-03] MEDS: THIAMINE 100 MG TABLET PO SCH (09:48)
[2021-03-03] MEDS: MULTIVITAMINS WITH MINERALS, THERAPEUTIC TABLET PO SCH (09:48)
[2021-03-03] MEDS: PARoxetine HCL 20 MG TABLET PO SCH (09:49)
[2021-03-03] MEDS: BACITRACIN 28 GM OINTMENT TP SCH ×2 (09:50→17:21)
[2021-03-03 15:26] VITALS: BP 118/90
[2021-03-03 16:30] VITALS: BP 102/72
[2021-03-03] MEDS: ZOLPIDEM TARTRATE 10 MG TABLET PO PRN (20:35)
[2021-03-03] MEDS: OLANZapine 10 MG RAPDIS TABLET PO SCH (20:35)
[2021-03-04 01:14] VITALS: BP 109/66
[2021-03-04 08:26] VITALS: BP 123/67
[2021-03-04] MEDS: PARoxetine HCL 20 MG TABLET PO SCH (09:56)
[2021-03-04] MEDS: BACITRACIN 28 GM OINTMENT TP SCH (09:56)
[2021-03-04] MEDS: THIAMINE 100 MG TABLET PO SCH (09:56)
[2021-03-04] MEDS: GABAPENTIN 300 MG CAPSULE PO SCH ×2 (09:56→16:48)
[2021-03-04] MEDS: MULTIVITAMINS WITH MINERALS, THERAPEUTIC TABLET PO SCH (09:56)
[2021-03-04] MEDS: FOLIC ACID 1 MG TABLET PO SCH (09:56)
[2021-03-04] MEDS: TraMADol HCL 50 MG TABLET PO PRN (10:06)
[2021-03-04 16:20] VITALS: BP 118/75
[2021-03-04] MEDS: OLANZapine 10 MG RAPDIS TABLET PO SCH (20:12)
[2021-03-04] MEDS: ZOLPIDEM TARTRATE 10 MG TABLET PO PRN (20:12)
[2021-03-05 00:39] VITALS: BP 108/70
[2021-03-05 08:27] VITALS: BP 102/60
[2021-03-05] MEDS: PARoxetine HCL 20 MG TABLET PO SCH (09:10)
[2021-03-05] MEDS: THIAMINE 100 MG TABLET PO SCH (09:10)
[2021-03-05] MEDS: FOLIC ACID 1 MG TABLET PO SCH (09:10)
[2021-03-05] MEDS: GABAPENTIN 300 MG CAPSULE PO SCH ×2 (09:10→16:48)
[2021-03-05] MEDS: MULTIVITAMINS WITH MINERALS, THERAPEUTIC TABLET PO SCH (09:10)
[2021-03-05 09:37] VITALS: BP 110/74
[2021-03-05] MEDS: TraMADol HCL 50 MG TABLET PO PRN (09:37)
[2021-03-05 16:34] VITALS: BP 126/73
[2021-03-05] MEDS: IBUPROFEN 400 MG TABLET PO PRN (18:40)
[2021-03-05] MEDS: OLANZapine 10 MG RAPDIS TABLET PO SCH (20:23)
[2021-03-05] MEDS: ZOLPIDEM TARTRATE 10 MG TABLET PO PRN (20:24)
[2021-03-06 05:06] VITALS: BP 109/66
[2021-03-06] MEDS: MULTIVITAMINS WITH MINERALS, THERAPEUTIC TABLET PO SCH (08:18)
[2021-03-06] MEDS: FOLIC ACID 1 MG TABLET PO SCH (08:18)
[2021-03-06] MEDS: THIAMINE 100 MG TABLET PO SCH (08:18)
[2021-03-06] MEDS: GABAPENTIN 300 MG CAPSULE PO SCH ×2 (08:18→16:42)
[2021-03-06] MEDS: PARoxetine HCL 20 MG TABLET PO SCH (08:18)
[2021-03-06 08:26] VITALS: BP 106/68
[2021-03-06] MEDS: TraMADol HCL 50 MG TABLET PO PRN (14:50)
[2021-03-06 16:44] VITALS: BP 128/80
[2021-03-06] MEDS: OLANZapine 10 MG RAPDIS TABLET PO SCH (20:53)
[2021-03-06] MEDS: ZOLPIDEM TARTRATE 10 MG TABLET PO PRN (20:53)
[2021-03-07 00:23] VITALS: BP 136/80
[2021-03-07 08:11] VITALS: BP 118/67
[2021-03-07] MEDS: PARoxetine HCL 20 MG TABLET PO SCH (08:49)
[2021-03-07] MEDS: FOLIC ACID 1 MG TABLET PO SCH (08:49)
[2021-03-07] MEDS: THIAMINE 100 MG TABLET PO SCH (08:49)
[2021-03-07] MEDS: MULTIVITAMINS WITH MINERALS, THERAPEUTIC TABLET PO SCH (08:49)
[2021-03-07] MEDS: GABAPENTIN 300 MG CAPSULE PO SCH ×2 (08:50→17:04)
[2021-03-07 16:47] VITALS: BP 127/77
[2021-03-07] MEDS: OLANZapine 10 MG RAPDIS TABLET PO SCH (20:14)
[2021-03-07] MEDS: ZOLPIDEM TARTRATE 10 MG TABLET PO PRN (20:14)
[2021-03-08 04:50] VITALS: BP 125/72
[2021-03-08 07:40] LABS: COVID AG,FIA SOURCE NASOPHARYNGEAL
[2021-03-08] MEDS: MULTIVITAMINS WITH MINERALS, THERAPEUTIC TABLET PO SCH (08:16)
[2021-03-08] MEDS: THIAMINE 100 MG TABLET PO SCH (08:16)
[2021-03-08] MEDS: PARoxetine HCL 20 MG TABLET PO SCH (08:16)
[2021-03-08] MEDS: FOLIC ACID 1 MG TABLET PO SCH (08:16)
[2021-03-08] MEDS: GABAPENTIN 300 MG CAPSULE PO SCH ×2 (08:16→16:03)
[2021-03-08 08:36] VITALS: BP 104/63
[2021-03-08 16:21] VITALS: BP 106/70
[2021-03-08] MEDS: ZOLPIDEM TARTRATE 10 MG TABLET PO PRN (20:05)
[2021-03-08] MEDS: OLANZapine 10 MG RAPDIS TABLET PO SCH (20:05)
[2021-03-09 00:42] VITALS: BP 125/82
[2021-03-09] MEDS: FOLIC ACID 1 MG TABLET PO SCH (08:22)
[2021-03-09] MEDS: THIAMINE 100 MG TABLET PO SCH (08:22)
[2021-03-09] MEDS: PARoxetine HCL 20 MG TABLET PO SCH (08:22)
[2021-03-09] MEDS: GABAPENTIN 300 MG CAPSULE PO SCH ×2 (08:22→16:18)
[2021-03-09 08:23] VITALS: BP 118/76
[2021-03-09] MEDS: MULTIVITAMINS WITH MINERALS, THERAPEUTIC TABLET PO SCH (13:52)
[2021-03-09] MEDS: TraMADol HCL 50 MG TABLET PO PRN (13:52)
[2021-03-09 14:52] VITALS: BP 120/72
[2021-03-09 16:21] VITALS: BP 110/66
[2021-03-09] MEDS: OLANZapine 10 MG RAPDIS TABLET PO SCH (20:13)
[2021-03-09] MEDS: ZOLPIDEM TARTRATE 10 MG TABLET PO PRN (20:13)
[2021-03-10 00:54] VITALS: BP 109/73
[2021-03-10 08:14] VITALS: BP 116/64
[2021-03-10] MEDS: GABAPENTIN 300 MG CAPSULE PO SCH ×2 (09:14→17:29)
[2021-03-10] MEDS: THIAMINE 100 MG TABLET PO SCH (09:14)
[2021-03-10] MEDS: FOLIC ACID 1 MG TABLET PO SCH (09:14)
[2021-03-10] MEDS: PARoxetine HCL 20 MG TABLET PO SCH (09:14)
[2021-03-10] MEDS: MULTIVITAMINS WITH MINERALS, THERAPEUTIC TABLET PO SCH (09:14)
[2021-03-10 13:06] VITALS: BP 116/70
[2021-03-10] MEDS: TraMADol HCL 50 MG TABLET PO PRN ×2 (13:06→21:08)
[2021-03-10 17:14] VITALS: BP_SYST 102
[2021-03-10] MEDS: OLANZapine 10 MG RAPDIS TABLET PO SCH (20:12)
[2021-03-10] MEDS: IBUPROFEN 400 MG TABLET PO PRN (20:13)
[2021-03-10] MEDS: ZOLPIDEM TARTRATE 10 MG TABLET PO PRN (20:13)
[2021-03-11 00:46] VITALS: BP 119/66
[2021-03-11 08:06] VITALS: BP 139/72
[2021-03-11] MEDS: FOLIC ACID 1 MG TABLET PO SCH (08:18)
[2021-03-11] MEDS: THIAMINE 100 MG TABLET PO SCH (08:18)
[2021-03-11] MEDS: PARoxetine HCL 20 MG TABLET PO SCH (08:18)
[2021-03-11] MEDS: GABAPENTIN 300 MG CAPSULE PO SCH ×2 (08:19→16:15)
[2021-03-11] MEDS: MULTIVITAMINS WITH MINERALS, THERAPEUTIC TABLET PO SCH (08:19)
[2021-03-11] MEDS: TraMADol HCL 50 MG TABLET PO PRN ×2 (11:11→20:01)
[2021-03-11 16:18] VITALS: BP 127/76
[2021-03-11 20:01] VITALS: BP 124/89
[2021-03-11] MEDS: OLANZapine 10 MG RAPDIS TABLET PO SCH (20:29)
[2021-03-11] MEDS: ZOLPIDEM TARTRATE 10 MG TABLET PO PRN (20:29)
[2021-03-12 00:24] VITALS: BP 121/74
[2021-03-12 08:05] VITALS: BP 116/61
[2021-03-12] MEDS: THIAMINE 100 MG TABLET PO SCH (08:07)
[2021-03-12] MEDS: MULTIVITAMINS WITH MINERALS, THERAPEUTIC TABLET PO SCH (08:07)
[2021-03-12] MEDS: PARoxetine HCL 20 MG TABLET PO SCH (08:07)
[2021-03-12] MEDS: FOLIC ACID 1 MG TABLET PO SCH (08:07)
[2021-03-12] MEDS: GABAPENTIN 300 MG CAPSULE PO SCH ×2 (08:07→16:22)
[2021-03-12] MEDS: TraMADol HCL 50 MG TABLET PO PRN ×2 (12:10→20:43)
[2021-03-12 16:27] VITALS: BP 110/66
[2021-03-12 20:43] VITALS: BP 131/84
[2021-03-12] MEDS: OLANZapine 10 MG RAPDIS TABLET PO SCH (20:43)
[2021-03-12] MEDS: ZOLPIDEM TARTRATE 10 MG TABLET PO PRN (20:51)
[2021-03-13 02:45] VITALS: BP 126/77
[2021-03-13 08:29] VITALS: BP 120/73
[2021-03-13] MEDS: PARoxetine HCL 20 MG TABLET PO SCH (08:42)
[2021-03-13] MEDS: THIAMINE 100 MG TABLET PO SCH (08:42)
[2021-03-13] MEDS: GABAPENTIN 300 MG CAPSULE PO SCH ×2 (08:42→17:02)
[2021-03-13] MEDS: MULTIVITAMINS WITH MINERALS, THERAPEUTIC TABLET PO SCH (08:42)
[2021-03-13] MEDS: FOLIC ACID 1 MG TABLET PO SCH (08:42)
[2021-03-13] MEDS: TraMADol HCL 50 MG TABLET PO PRN ×2 (10:41→20:14)
[2021-03-13 16:43] VITALS: BP 130/77
[2021-03-13] MEDS: ZOLPIDEM TARTRATE 10 MG TABLET PO PRN (20:14)
[2021-03-13] MEDS: OLANZapine 10 MG RAPDIS TABLET PO SCH (20:14)
[2021-03-14 04:37] VITALS: BP 138/60
[2021-03-14] MEDS ORDERED: PARO-38 PO (08:06)
[2021-03-14] MEDS ORDERED: OLAN10TA26 PO (08:07)
[2021-03-14] MEDS: GABAPENTIN 300 MG CAPSULE PO SCH (08:40)
[2021-03-14] MEDS: FOLIC ACID 1 MG TABLET PO SCH (08:41)
[2021-03-14] MEDS: PARoxetine HCL 20 MG TABLET PO SCH (08:41)
[2021-03-14] MEDS: MULTIVITAMINS WITH MINERALS, THERAPEUTIC TABLET PO SCH (08:41)
[2021-03-14] MEDS: THIAMINE 100 MG TABLET PO SCH (08:41)
[2021-03-14] MEDS: TraMADol HCL 50 MG TABLET PO PRN (08:42)
[2021-03-14 08:45] VITALS: BP 114/73
== END 2021-03-14 10:00 | disposition home or self-care (01) | DRG 751 ==
LOC: B2S 09:05
PROVIDERS: ADMIT Psychiatry & Neurology Child & Adolescent Psychiatry; ATTEND Psychiatry & Neurology Child & Adolescent Psychiatry
DX: F33.2 Major depressive disorder, recurrent severe without psychotic features (principal); G62.9 Polyneuropathy, unspecified; F15.10 Other stimulant abuse, uncomplicated; Z20.822 Contact with and (suspected) exposure to COVID-19; Z59.0 Homelessness; Z86.73 Personal history of transient ischemic attack (TIA), and cerebral infarction without residual deficits; F41.9 Anxiety disorder, unspecified
CPT/HCPCS: 80053; 80061; 84439; 84443; 85025; 87081

== ENCOUNTER 2021-04-21 23:50 | Inpatient (IN) | payer MEDICAID ==
[~2021-04-21] VITALS: Ht 167.6 cm; Wt 85.3 kg
[~2021-04-21 23:50] MED LIST changes: -BUPR-93 PO; +OLAN10TA26 PO; -OLAN5TAB52 PO; +PARO-38 PO
[2021-04-22] MEDS ORDERED: QUEtiapine FUMARATE 100 MG TABLET PO PRN (02:45)
[2021-04-22 03:39] VITALS: BP 136/77
[2021-04-22] MEDS ORDERED: NICOTINE 14 MG/24 HOUR PATCH TD PRN (07:45)
[2021-04-22] MEDS ORDERED: CloNIDine HCL 0.1 MG TABLET PO PRN (07:45)
[2021-04-22] MEDS ORDERED: MAGNESIUM HYDROXIDE SUSPENSION 30 ML UDCUP PO PRN (07:45)
[2021-04-22] MEDS ORDERED: LOPERAMIDE HCL 2 MG CAPSULE PO PRN (07:45)
[2021-04-22] MEDS ORDERED: IBUPROFEN 400 MG TABLET PO PRN (07:45)
[2021-04-22] MEDS ORDERED: PETROLATUM,WHITE 28 GM JELLY TP PRN (07:45)
[2021-04-22] MEDS ORDERED: GuaiFENesin/D-METHORPHAN [SUGAR-FREE] 200-20MG/10 ML SYRUP UDCUP PO PRN (07:45)
[2021-04-22] MEDS ORDERED: MAG HYDROX/AL HYDROX/SIMETH ES 30 ML SUSPENSION UDCUP PO PRN (07:45)
[2021-04-22] MEDS ORDERED: ALBUTEROL SULFATE HFA 90 MCG/PUFF 8 GM INHALER IH PRN (07:45)
[2021-04-22] MEDS ORDERED: ONDANSETRON HCL 4 MG TABLET PO PRN (07:45)
[2021-04-22] MEDS ORDERED: DOCUSATE SODIUM 100 MG CAPSULE PO PRN (07:45)
[2021-04-22 08:09] VITALS: BP 120/70
[2021-04-22] MEDS: GABAPENTIN 300 MG CAPSULE PO SCH ×2 (08:51→16:32)
[2021-04-22] MEDS: BACITRACIN 28 GM OINTMENT TP SCH ×2 (08:52→16:33)
[2021-04-22] MEDS: LORazepam 2 MG TABLET PO PRN (08:53)
[2021-04-22] MEDS: NYSTATIN 15 GM POWDER BOTTLE TP SCH ×2 (08:59→16:38)
[2021-04-22] MEDS: OLANZapine 10 MG RAPDIS TABLET PO SCH ×3 (11:21→16:32)
[2021-04-22 14:11] VITALS: BP 119/82
[2021-04-22 16:07] VITALS: BP 126/80
[2021-04-23 00:17] VITALS: BP 124/75
[2021-04-23 08:06] VITALS: BP 125/74
[2021-04-23] MEDS: OLANZapine 10 MG RAPDIS TABLET PO SCH ×2 (08:35→16:25)
[2021-04-23] MEDS: GABAPENTIN 300 MG CAPSULE PO SCH ×2 (08:35→16:26)
[2021-04-23] MEDS: BACITRACIN 28 GM OINTMENT TP SCH ×2 (08:39→16:26)
[2021-04-23] MEDS: NYSTATIN 15 GM POWDER BOTTLE TP SCH ×2 (08:39→16:26)
[2021-04-23 16:08] VITALS: BP 122/78
[2021-04-23] MEDS: LORazepam 2 MG TABLET PO PRN (16:53)
[2021-04-24 00:16] VITALS: BP 118/76
[2021-04-24 08:26] VITALS: BP 126/79
[2021-04-24 08:28] VITALS: BP 126/79
[2021-04-24] MEDS: OLANZapine 10 MG RAPDIS TABLET PO SCH ×2 (08:45→17:11)
[2021-04-24] MEDS: GABAPENTIN 300 MG CAPSULE PO SCH ×2 (08:45→16:30)
[2021-04-24] MEDS: NYSTATIN 15 GM POWDER BOTTLE TP SCH ×2 (08:58→16:47)
[2021-04-24] MEDS: BACITRACIN 28 GM OINTMENT TP SCH ×2 (08:58→16:47)
[2021-04-24] MEDS: LORazepam 2 MG TABLET PO PRN ×3 (09:02→22:58)
[2021-04-24 16:21] VITALS: BP 135/85
[2021-04-24] MEDS: ZOLPIDEM TARTRATE 10 MG TABLET PO PRN (20:41)
[2021-04-24] MEDS: ACETAMINOPHEN 325 MG TABLET PO PRN (21:36)
[2021-04-24] MEDS ORDERED: TraMADol HCL 50 MG TABLET PO PRN (22:15)
[2021-04-25 00:06] VITALS: BP 132/83
[2021-04-25 08:04] VITALS: BP 128/80
[2021-04-25] MEDS: GABAPENTIN 300 MG CAPSULE PO SCH ×2 (08:13→16:26)
[2021-04-25] MEDS: BACITRACIN 28 GM OINTMENT TP SCH ×2 (08:13→16:27)
[2021-04-25] MEDS: OLANZapine 10 MG RAPDIS TABLET PO SCH ×2 (08:13→17:11)
[2021-04-25] MEDS: NYSTATIN 15 GM POWDER BOTTLE TP SCH ×2 (08:14→16:27)
[2021-04-25] MEDS: LORazepam 2 MG TABLET PO PRN ×2 (08:17→17:07)
[2021-04-25 16:07] VITALS: BP 134/84
[2021-04-26 00:44] VITALS: BP 114/66
[2021-04-26 08:06] VITALS: BP 120/74
[2021-04-26] MEDS: GABAPENTIN 300 MG CAPSULE PO SCH ×2 (08:35→16:29)
[2021-04-26] MEDS: OLANZapine 10 MG RAPDIS TABLET PO SCH ×2 (08:35→19:19)
[2021-04-26] MEDS: BACITRACIN 28 GM OINTMENT TP SCH ×2 (08:37→16:29)
[2021-04-26] MEDS: NYSTATIN 15 GM POWDER BOTTLE TP SCH ×2 (08:38→16:30)
[2021-04-26] MEDS: ACETAMINOPHEN 325 MG TABLET PO PRN (08:44)
[2021-04-26] MEDS: LORazepam 2 MG TABLET PO PRN ×3 (08:44→22:24)
[2021-04-26] MEDS: BuPROPion HCL XL 150 MG ER TABLET PO SCH (10:22)
[2021-04-26 16:11] VITALS: BP 112/71
[2021-04-26] MEDS: ZOLPIDEM TARTRATE 10 MG TABLET PO PRN (21:00)
[2021-04-27 02:55] VITALS: BP 119/74
[2021-04-27 07:09] LABS: BASOPHILS % (AUTO) 0.7 % (0.0-2.0); EOSINOPHILS % (AUTO) 4.4 % (1.0-6.0); HEMATOCRIT 38.3 % (41-53); MEAN CORPUSCULAR HEMOGLOBIN 27.2 pg (26.0-34.0); MEAN CORPUSCULAR HGB CONC 33.8 G/dL (31.0-37.0); MEAN CORPUSCULAR VOLUME 81 fL (80-100); MONOCYTES # (AUTO) 0.7 K/uL (0.1-1.0); MONOCYTES % (AUTO) 11.9 % (2.0-9.0); NEUTROPHILS # (AUTO) 2.8 K/uL (1.8-7.7); PLATELET COUNT (AUTO) 296 K/uL (150-450); RED BLOOD CELL COUNT(AUTO) 4.75 MIL/uL (4.50-5.90); RED CELL DISTRIBUTION WIDTH 15.4 % (11.5-14.5)
[2021-04-27 07:14] LABS: COVID AG,FIA SOURCE NASOPHARYNGEAL
[2021-04-27 07:20] LABS: HEMOGLOBIN A1C 5.1 % (3.8-5.6)
[2021-04-27 07:33] LABS: ALANINE AMINOTRANSFERASE 73 U/L (12-78); ALBUMIN 3.3 g/dL (3.4-5.0); ALKALINE PHOSPHATASE 62 U/L (46-116); ANION GAP 8 mmol/L (8-16); ASPARTATE AMINOTRANSFERASE 42 U/L (15-37); BILIRUBIN,TOTAL 0.3 mg/dL (0.1-1.0); CALCIUM, TOTAL 8.4 mg/dL (8.8-10.5); CARBON DIOXIDE 26 mmol/L (22-29); CHLORIDE 104 mmol/L (98-107); CHOL/HDL RATIO 4.2 (4.2-7.3); CHOLESTEROL 171 mg/dL (131-200); CREATININE 0.76 mg/dL (0.60-1.30); FREE T4 (FREE THYROXINE) 1.06 ng/dL (0.76-1.46); GLOMERULAR FILTR. RATE CALC > 60 mL/min (>60); GLUCOSE,RANDOM 95 mg/dL (70-110); HDL CHOLESTEROL 41 mg/dL (40-60); LDL CHOL (CALC.) 117 mg/dL (0-130); POTASSIUM 4.4 mmol/L (3.5-5.1); SODIUM SERUM 138 mmol/L (136-145); THYROID STIMULATING HORMONE 1.66 uIU/mL (0.36-3.74); TOTAL PROTEIN, SERUM 6.7 g/dL (6.4-8.2); TRIGLYCERIDES 67 mg/dL (15-150); UREA NITROGEN, BLOOD 18 mg/dL (7-18)
[2021-04-27] MEDS: BACITRACIN 28 GM OINTMENT TP SCH ×2 (08:28→16:29)
[2021-04-27] MEDS: NYSTATIN 15 GM POWDER BOTTLE TP SCH ×2 (08:28→16:28)
[2021-04-27] MEDS: GABAPENTIN 300 MG CAPSULE PO SCH ×2 (08:29→16:28)
[2021-04-27] MEDS: OLANZapine 10 MG RAPDIS TABLET PO SCH ×2 (08:29→20:02)
[2021-04-27] MEDS: BuPROPion HCL XL 150 MG ER TABLET PO SCH (08:29)
[2021-04-27] MEDS: LORazepam 2 MG TABLET PO PRN ×3 (08:51→20:02)
[2021-04-27 09:30] VITALS: BP 130/56
[2021-04-27 13:25] VITALS: BP 116/68
[2021-04-27 16:15] VITALS: BP 110/71
[2021-04-28 01:24] VITALS: BP 115/73
[2021-04-28 08:07] VITALS: BP 108/67
[2021-04-28] MEDS: BACITRACIN 28 GM OINTMENT TP SCH ×2 (08:30→16:24)
[2021-04-28] MEDS: GABAPENTIN 300 MG CAPSULE PO SCH ×2 (08:30→16:22)
[2021-04-28] MEDS: BuPROPion HCL XL 150 MG ER TABLET PO SCH (08:30)
[2021-04-28] MEDS: NYSTATIN 15 GM POWDER BOTTLE TP SCH ×2 (08:30→16:23)
[2021-04-28] MEDS: LORazepam 2 MG TABLET PO PRN ×3 (08:41→20:08)
[2021-04-28 16:15] VITALS: BP 123/81
[2021-04-28] MEDS: OLANZapine 10 MG RAPDIS TABLET PO SCH (20:09)
[2021-04-28] MEDS: ZOLPIDEM TARTRATE 10 MG TABLET PO PRN (21:46)
[2021-04-29 02:27] VITALS: BP 111/67
[2021-04-29 08:10] VITALS: BP 111/72
[2021-04-29] MEDS: BuPROPion HCL XL 150 MG ER TABLET PO SCH (08:29)
[2021-04-29] MEDS: GABAPENTIN 300 MG CAPSULE PO SCH ×2 (08:29→16:04)
[2021-04-29] MEDS: NYSTATIN 15 GM POWDER BOTTLE TP SCH ×2 (08:30→16:06)
[2021-04-29] MEDS: BACITRACIN 28 GM OINTMENT TP SCH ×2 (08:30→16:06)
[2021-04-29] MEDS: LORazepam 2 MG TABLET PO PRN ×3 (08:42→20:23)
[2021-04-29] MEDS: ZINC OXIDE 40%/COD LIVER OIL 57 GM PASTE TP SCH ×2 (15:00→16:06)
[2021-04-29 16:15] VITALS: BP 124/69
[2021-04-29] MEDS: OLANZapine 10 MG RAPDIS TABLET PO SCH (20:22)
[2021-04-30 06:07] VITALS: BP 105/60
[2021-04-30 08:23] VITALS: BP 132/84
[2021-04-30] MEDS: GABAPENTIN 300 MG CAPSULE PO SCH ×2 (09:05→16:33)
[2021-04-30] MEDS: BuPROPion HCL XL 150 MG ER TABLET PO SCH (09:06)
[2021-04-30] MEDS: LORazepam 2 MG TABLET PO PRN ×3 (09:07→20:31)
[2021-04-30] MEDS: NYSTATIN 15 GM POWDER BOTTLE TP SCH ×2 (09:10→16:32)
[2021-04-30] MEDS: ZINC OXIDE 40%/COD LIVER OIL 57 GM PASTE TP SCH ×2 (09:10→16:32)
[2021-04-30] MEDS: BACITRACIN 28 GM OINTMENT TP SCH ×2 (09:11→16:32)
[2021-04-30 16:09] VITALS: BP 105/67
[2021-04-30] MEDS: OLANZapine 10 MG RAPDIS TABLET PO SCH (20:31)
[2021-05-01 00:56] VITALS: BP 105/67
[2021-05-01 08:20] VITALS: BP 125/71
[2021-05-01] MEDS: GABAPENTIN 300 MG CAPSULE PO SCH ×2 (08:29→16:30)
[2021-05-01] MEDS: LORazepam 2 MG TABLET PO PRN ×3 (08:29→20:31)
[2021-05-01] MEDS: BuPROPion HCL XL 150 MG ER TABLET PO SCH (08:29)
[2021-05-01] MEDS: NYSTATIN 15 GM POWDER BOTTLE TP SCH ×2 (08:31→16:31)
[2021-05-01] MEDS: BACITRACIN 28 GM OINTMENT TP SCH ×2 (08:32→16:31)
[2021-05-01] MEDS: ZINC OXIDE 40%/COD LIVER OIL 57 GM PASTE TP SCH ×2 (08:32→16:32)
[2021-05-01 16:12] VITALS: BP 117/70
[2021-05-01] MEDS: OLANZapine 10 MG RAPDIS TABLET PO SCH (20:32)
[2021-05-02 01:32] VITALS: BP 128/69
[2021-05-02] MEDS: LORazepam 2 MG TABLET PO PRN ×3 (08:20→20:31)
[2021-05-02 08:32] VITALS: BP 110/66
[2021-05-02] MEDS: GABAPENTIN 300 MG CAPSULE PO SCH ×2 (08:49→16:33)
[2021-05-02] MEDS: NYSTATIN 15 GM POWDER BOTTLE TP SCH ×2 (08:50→16:33)
[2021-05-02] MEDS: BACITRACIN 28 GM OINTMENT TP SCH ×2 (08:50→16:33)
[2021-05-02] MEDS: ZINC OXIDE 40%/COD LIVER OIL 57 GM PASTE TP SCH ×2 (08:50→16:34)
[2021-05-02] MEDS: BuPROPion HCL XL 150 MG ER TABLET PO SCH (08:50)
[2021-05-02 16:18] VITALS: BP 111/73
[2021-05-02] MEDS: OLANZapine 10 MG RAPDIS TABLET PO SCH (20:31)
[2021-05-02] MEDS: ZOLPIDEM TARTRATE 10 MG TABLET PO PRN (21:11)
[2021-05-03 01:09] VITALS: BP 128/83
[2021-05-03 08:18] VITALS: BP 106/66
[2021-05-03] MEDS: BuPROPion HCL XL 150 MG ER TABLET PO SCH (08:35)
[2021-05-03] MEDS: GABAPENTIN 300 MG CAPSULE PO SCH ×2 (08:35→16:01)
[2021-05-03] MEDS: ZINC OXIDE 40%/COD LIVER OIL 57 GM PASTE TP SCH ×2 (08:36→16:44)
[2021-05-03] MEDS: BACITRACIN 28 GM OINTMENT TP SCH ×2 (08:36→16:45)
[2021-05-03] MEDS: NYSTATIN 15 GM POWDER BOTTLE TP SCH ×2 (08:36→16:44)
[2021-05-03] MEDS: LORazepam 2 MG TABLET PO PRN ×3 (08:37→20:03)
[2021-05-03 16:04] VITALS: BP_SYST 113
[2021-05-03] MEDS: OLANZapine 10 MG RAPDIS TABLET PO SCH (20:03)
[2021-05-03] MEDS: ZOLPIDEM TARTRATE 10 MG TABLET PO PRN (21:00)
[2021-05-04 01:28] VITALS: BP 120/75
[2021-05-04 08:18] VITALS: BP 111/67
[2021-05-04] MEDS: BuPROPion HCL XL 150 MG ER TABLET PO SCH (09:02)
[2021-05-04] MEDS: GABAPENTIN 300 MG CAPSULE PO SCH ×2 (09:03→17:01)
[2021-05-04] MEDS: LORazepam 2 MG TABLET PO PRN ×3 (09:03→20:20)
[2021-05-04] MEDS: ZINC OXIDE 40%/COD LIVER OIL 57 GM PASTE TP SCH ×2 (09:07→17:00)
[2021-05-04] MEDS: NYSTATIN 15 GM POWDER BOTTLE TP SCH ×2 (09:07→20:23)
[2021-05-04] MEDS: BACITRACIN 28 GM OINTMENT TP SCH ×2 (09:09→17:00)
[2021-05-04 16:25] VITALS: BP 113/73
[2021-05-04] MEDS: ZOLPIDEM TARTRATE 10 MG TABLET PO PRN (20:20)
[2021-05-04] MEDS: OLANZapine 10 MG RAPDIS TABLET PO SCH (20:21)
[2021-05-05 01:04] VITALS: BP 119/78
[2021-05-05 08:12] VITALS: BP 116/73
[2021-05-05] MEDS: LORazepam 2 MG TABLET PO PRN ×3 (08:15→22:23)
[2021-05-05] MEDS: GABAPENTIN 300 MG CAPSULE PO SCH ×2 (09:14→16:33)
[2021-05-05] MEDS: NYSTATIN 15 GM POWDER BOTTLE TP SCH ×2 (09:14→16:33)
[2021-05-05] MEDS: BACITRACIN 28 GM OINTMENT TP SCH ×2 (09:14→16:33)
[2021-05-05] MEDS: ZINC OXIDE 40%/COD LIVER OIL 57 GM PASTE TP SCH ×2 (09:14→16:34)
[2021-05-05] MEDS: BuPROPion HCL XL 150 MG ER TABLET PO SCH (09:14)
[2021-05-05 16:12] VITALS: BP 118/79
[2021-05-05] MEDS: OLANZapine 10 MG RAPDIS TABLET PO SCH (20:29)
[2021-05-06 05:31] VITALS: BP 100/65
[2021-05-06] MEDS ORDERED: LORazepam 2 MG TABLET PO PRN (07:00)
[2021-05-06 08:36] VITALS: BP 113/67
[2021-05-06] MEDS: GABAPENTIN 300 MG CAPSULE PO SCH ×2 (09:23→16:05)
[2021-05-06] MEDS: LORazepam 2 MG TABLET PO SCH ×4 (09:23→20:11)
[2021-05-06] MEDS: BuPROPion HCL XL 150 MG ER TABLET PO SCH (09:23)
[2021-05-06] MEDS: ZINC OXIDE 40%/COD LIVER OIL 57 GM PASTE TP SCH ×2 (10:12→16:42)
[2021-05-06] MEDS: NYSTATIN 15 GM POWDER BOTTLE TP SCH ×2 (10:12→16:43)
[2021-05-06] MEDS: BACITRACIN 28 GM OINTMENT TP SCH ×2 (10:12→16:42)
[2021-05-06 14:53] LABS: COVID AG,FIA SOURCE NASOPHARYNGEAL
[2021-05-06 16:28] VITALS: BP 100/67
[2021-05-06] MEDS: OLANZapine 10 MG RAPDIS TABLET PO SCH (20:11)
[2021-05-07 01:20] VITALS: BP 110/70
[2021-05-07 08:20] VITALS: BP 104/61
[2021-05-07] MEDS: GABAPENTIN 300 MG CAPSULE PO SCH ×2 (08:25→16:01)
[2021-05-07] MEDS: LORazepam 2 MG TABLET PO SCH ×4 (08:26→20:07)
[2021-05-07] MEDS: BuPROPion HCL XL 150 MG ER TABLET PO SCH (08:29)
[2021-05-07] MEDS: NYSTATIN 15 GM POWDER BOTTLE TP SCH ×2 (09:29→16:40)
[2021-05-07] MEDS: ZINC OXIDE 40%/COD LIVER OIL 57 GM PASTE TP SCH ×2 (09:29→16:40)
[2021-05-07] MEDS: BACITRACIN 28 GM OINTMENT TP SCH ×2 (09:29→16:40)
[2021-05-07 16:06] VITALS: BP 117/74
[2021-05-07] MEDS: OLANZapine 10 MG RAPDIS TABLET PO SCH (20:07)
[2021-05-08 00:42] VITALS: BP 121/78
[2021-05-08] MEDS ORDERED: LORazepam 1 MG TABLET PO PRN (07:00)
[2021-05-08] MEDS: BuPROPion HCL XL 150 MG ER TABLET PO SCH (08:59)
[2021-05-08] MEDS: LORazepam 1 MG TABLET PO SCH ×4 (08:59→20:38)
[2021-05-08] MEDS: GABAPENTIN 300 MG CAPSULE PO SCH ×2 (08:59→16:34)
[2021-05-08] MEDS: BACITRACIN 28 GM OINTMENT TP SCH ×2 (08:59→16:34)
[2021-05-08] MEDS: ZINC OXIDE 40%/COD LIVER OIL 57 GM PASTE TP SCH ×2 (09:00→16:36)
[2021-05-08] MEDS: NYSTATIN 15 GM POWDER BOTTLE TP SCH ×2 (09:00→16:35)
[2021-05-08 10:10] VITALS: BP 109/63
[2021-05-08 16:15] VITALS: BP 122/74
[2021-05-08] MEDS: ZOLPIDEM TARTRATE 10 MG TABLET PO PRN (20:37)
[2021-05-08] MEDS: OLANZapine 10 MG RAPDIS TABLET PO SCH (20:37)
[2021-05-09 01:03] VITALS: BP 140/97
[2021-05-09] MEDS ORDERED: LORazepam 1 MG TABLET PO PRN (07:00)
[2021-05-09 08:12] VITALS: BP 67/16
[2021-05-09] MEDS: GABAPENTIN 300 MG CAPSULE PO SCH (09:21)
[2021-05-09] MEDS: BuPROPion HCL XL 150 MG ER TABLET PO SCH (09:22)
[2021-05-09] MEDS: ZINC OXIDE 40%/COD LIVER OIL 57 GM PASTE TP SCH (10:07)
[2021-05-09] MEDS: BACITRACIN 28 GM OINTMENT TP SCH (10:07)
[2021-05-09] MEDS: NYSTATIN 15 GM POWDER BOTTLE TP SCH (10:07)
[2021-05-09] MEDS ORDERED: BUPR-93 PO (11:10)
== END 2021-05-09 12:30 | disposition left against medical advice (07) | DRG 750 ==
LOC: B2S 04-22 02:39
PROVIDERS: ADMIT Psychiatry & Neurology Child & Adolescent Psychiatry; ATTEND Psychiatry & Neurology Child & Adolescent Psychiatry
DX: F25.1 Schizoaffective disorder, depressive type (principal); R45.851 Suicidal ideations; G40.909 Epilepsy, unspecified, not intractable, without status epilepticus; B36.9 Superficial mycosis, unspecified; F15.10 Other stimulant abuse, uncomplicated; F32.9 Major depressive disorder, single episode, unspecified; F41.0 Panic disorder [episodic paroxysmal anxiety]; G62.9 Polyneuropathy, unspecified; G89.29 Other chronic pain; M79.673 Pain in unspecified foot; I10 Essential (primary) hypertension; Z20.822 Contact with and (suspected) exposure to COVID-19; Z59.0 Homelessness; Z86.73 Personal history of transient ischemic attack (TIA), and cerebral infarction without residual deficits; Z87.891 Personal history of nicotine dependence; Z91.5 Personal history of self-harm; Z79.899 Other long term (current) drug therapy
CPT/HCPCS: 80053; 80061; 83036; 84439; 84443; 85025

== ENCOUNTER 2021-05-10 14:21 | Inpatient (IN) | payer MEDICAID ==
[~2021-05-10] VITALS: Ht 167.6 cm; Wt 84.2 kg
[~2021-05-10 14:21] MED LIST changes: +BUPR-93 PO; -PARO-38 PO
[2021-05-10] MEDS ORDERED: ACETAMINOPHEN 325 MG TABLET PO ONE (15:30)
[2021-05-10] MEDS ORDERED: ONDANSETRON HCL 4 MG TABLET PO ONE (15:30)
[2021-05-10 15:57] LABS: BASOPHILS % (AUTO) 0.2 % (0.0-2.0); EOSINOPHILS % (AUTO) 0 % (1.0-6.0); HEMATOCRIT 39.3 % (41-53); HEMOGLOBIN 12.9 g/dL (13.5-17.5); LYMPHOCYTES # (AUTO) 2.3 K/uL (1.0-4.8); LYMPHOCYTES % (AUTO) 14.7 % (22.0-44.0); MEAN CORPUSCULAR HEMOGLOBIN 26.6 pg (26.0-34.0); MEAN CORPUSCULAR HGB CONC 32.8 G/dL (31.0-37.0); MEAN CORPUSCULAR VOLUME 81 fL (80-100); MONOCYTES # (AUTO) 1.8 K/uL (0.1-1.0); MONOCYTES % (AUTO) 11.4 % (2.0-9.0); NEUTROPHILS # (AUTO) 11.3 K/uL (1.8-7.7); NEUTROPHILS % (AUTO) 73.7 % (40.0-70.0); PLATELET COUNT (AUTO) 408 K/uL (150-450); RED BLOOD CELL COUNT(AUTO) 4.83 MIL/uL (4.50-5.90); RED CELL DISTRIBUTION WIDTH 15.4 % (11.5-14.5)
[2021-05-10 16:07] LABS: ANION GAP 13 mmol/L (8-16); CALCIUM, TOTAL 8.9 mg/dL (8.8-10.5); CARBON DIOXIDE 23 mmol/L (22-29); CHLORIDE 102 mmol/L (98-107); CREATININE 1.39 mg/dL (0.60-1.30); GLOMERULAR FILTR. RATE CALC 55 mL/min (>60); GLUCOSE,RANDOM 107 mg/dL (70-110); POTASSIUM 3.5 mmol/L (3.5-5.1); SODIUM SERUM 138 mmol/L (136-145); UREA NITROGEN, BLOOD 32 mg/dL (7-18)
[2021-05-10 16:13] LABS: ALANINE AMINOTRANSFERASE 300 U/L (12-78); ALBUMIN 4.2 g/dL (3.4-5.0); ALKALINE PHOSPHATASE 73 U/L (46-116); ASPARTATE AMINOTRANSFERASE 240 U/L (15-37); BILIRUBIN,TOTAL 0.7 mg/dL (0.1-1.0)
[2021-05-10 16:26] LABS: AMPHET/METH SCREEN,URINE POSITIVE (NEGATIVE); BARBITURATE SCREEN, URINE NEGATIVE (NEGATIVE); BENZODIAZEPINES SCREEN,URINE NEGATIVE (NEGATIVE); CANNABINOID SCREEN,URINE NEGATIVE (NEGATIVE); COCAINE SCREEN,URINE NEGATIVE (NEGATIVE); METHADONE SCREEN, URINE NEGATIVE (NEGATIVE); OPIATE SCREEN,URINE NEGATIVE (NEGATIVE)
[2021-05-10 16:33] LABS: PHENCYCLIDINE SCREEN,URINE NEGATIVE (NEGATIVE)
[2021-05-10] MEDS ORDERED: HALOPERIDOL 5 MG TABLET PO PRN (17:15)
[2021-05-10 17:53] LABS: COVID AG,FIA SOURCE NASOPHARYNGEAL
[2021-05-10 20:26] VITALS: BP 152/99
[2021-05-10] MEDS ORDERED: PNEUMOCOCCAL VACCINE POLYVALENT 0.5 ML VIAL [PPSV23] IM. ONE (20:30)
[2021-05-10] MEDS: LORazepam 2 MG TABLET PO PRN (21:01)
[2021-05-11 01:17] VITALS: BP 118/79
[2021-05-11] MEDS ORDERED: ACETAMINOPHEN 325 MG TABLET PO PRN (01:30)
[2021-05-11] MEDS ORDERED: IBUPROFEN 400 MG TABLET PO PRN ×2 (01:30→07:00)
[2021-05-11] MEDS ORDERED: ALBUTEROL SULFATE HFA 90 MCG/PUFF 8 GM INHALER IH PRN (07:00)
[2021-05-11] MEDS ORDERED: NICOTINE 14 MG/24 HOUR PATCH TD PRN (07:00)
[2021-05-11] MEDS ORDERED: LOPERAMIDE HCL 2 MG CAPSULE PO PRN (07:00)
[2021-05-11] MEDS ORDERED: MAGNESIUM HYDROXIDE SUSPENSION 30 ML UDCUP PO PRN (07:00)
[2021-05-11] MEDS ORDERED: CloNIDine HCL 0.1 MG TABLET PO PRN (07:00)
[2021-05-11] MEDS ORDERED: GuaiFENesin/D-METHORPHAN [SUGAR-FREE] 200-20MG/10 ML SYRUP UDCUP PO PRN (07:00)
[2021-05-11] MEDS ORDERED: DOCUSATE SODIUM 100 MG CAPSULE PO PRN (07:00)
[2021-05-11] MEDS ORDERED: PETROLATUM,WHITE 28 GM JELLY TP PRN (07:00)
[2021-05-11] MEDS ORDERED: ONDANSETRON HCL 4 MG TABLET PO PRN (07:00)
[2021-05-11] MEDS ORDERED: MAG HYDROX/AL HYDROX/SIMETH ES 30 ML SUSPENSION UDCUP PO PRN (07:00)
[2021-05-11 08:10] VITALS: BP 102/62
[2021-05-11] MEDS: AmLODIPine BESYLATE 5 MG TABLET PO SCH (08:22)
[2021-05-11] MEDS: LORazepam 2 MG TABLET PO PRN (08:23)
[2021-05-11 08:38] LABS: FREE T4 (FREE THYROXINE) 0.98 ng/dL (0.76-1.46)
[2021-05-11] MEDS: BuPROPion HCL 75 MG TABLET PO SCH (13:13)
[2021-05-11] MEDS: GABAPENTIN 300 MG CAPSULE PO SCH (16:09)
[2021-05-11 16:13] VITALS: BP 107/61
[2021-05-11] MEDS: LORazepam 1 MG TABLET PO PRN (16:42)
[2021-05-11] MEDS: OLANZapine 10 MG TABLET PO SCH (20:06)
[2021-05-11] MEDS: ZOLPIDEM TARTRATE 10 MG TABLET PO PRN (20:06)
[2021-05-12 01:44] VITALS: BP 129/77
[2021-05-12 08:13] VITALS: BP 107/65
[2021-05-12] MEDS: LORazepam 1 MG TABLET PO PRN ×2 (08:20→20:03)
[2021-05-12] MEDS: BuPROPion HCL 75 MG TABLET PO SCH (08:43)
[2021-05-12] MEDS: AmLODIPine BESYLATE 5 MG TABLET PO SCH (08:43)
[2021-05-12] MEDS: GABAPENTIN 300 MG CAPSULE PO SCH ×2 (08:43→16:24)
[2021-05-12 16:25] VITALS: BP 109/60
[2021-05-12] MEDS: OLANZapine 10 MG TABLET PO SCH (20:02)
[2021-05-12] MEDS: ZOLPIDEM TARTRATE 10 MG TABLET PO PRN (20:03)
[2021-05-13 01:15] VITALS: BP 119/67
[2021-05-13 08:12] VITALS: BP 93/60
[2021-05-13] MEDS: GABAPENTIN 300 MG CAPSULE PO SCH ×2 (08:58→16:36)
[2021-05-13] MEDS: BuPROPion HCL 75 MG TABLET PO SCH (08:58)
[2021-05-13] MEDS: AmLODIPine BESYLATE 5 MG TABLET PO SCH (08:58)
[2021-05-13 13:03] VITALS: BP 111/68
[2021-05-13] MEDS: LORazepam 1 MG TABLET PO PRN ×2 (13:06→20:18)
[2021-05-13 18:12] VITALS: BP 105/68
[2021-05-13] MEDS: OLANZapine 10 MG TABLET PO SCH (20:18)
[2021-05-14 04:57] VITALS: BP 108/64
[2021-05-14] MEDS: LORazepam 1 MG TABLET PO PRN ×3 (08:30→20:55)
[2021-05-14 08:39] VITALS: BP 106/65
[2021-05-14] MEDS: BuPROPion HCL 75 MG TABLET PO SCH (08:59)
[2021-05-14] MEDS: AmLODIPine BESYLATE 5 MG TABLET PO SCH (08:59)
[2021-05-14] MEDS: GABAPENTIN 300 MG CAPSULE PO SCH ×2 (08:59→16:33)
[2021-05-14 16:16] VITALS: BP 144/81
[2021-05-14] MEDS: OLANZapine 10 MG TABLET PO SCH (20:55)
[2021-05-15 04:15] VITALS: BP 110/62
[2021-05-15 07:30] LABS: COVID AG,FIA SOURCE NASOPHARYNGEAL
[2021-05-15 08:05] VITALS: BP 110/65
[2021-05-15] MEDS: GABAPENTIN 300 MG CAPSULE PO SCH ×2 (08:46→16:50)
[2021-05-15] MEDS: AmLODIPine BESYLATE 5 MG TABLET PO SCH (08:46)
[2021-05-15] MEDS: BuPROPion HCL 75 MG TABLET PO SCH (08:46)
[2021-05-15] MEDS: ACETAMINOPHEN 325 MG TABLET PO PRN (08:47)
[2021-05-15] MEDS: LORazepam 1 MG TABLET PO PRN ×3 (08:47→22:02)
[2021-05-15 16:06] VITALS: BP 117/73
[2021-05-15] MEDS: OLANZapine 10 MG TABLET PO SCH (21:16)
[2021-05-16 01:51] VITALS: BP 111/66
[2021-05-16 06:59] LABS: BASOPHILS % (AUTO) 1.2 % (0.0-2.0); EOSINOPHILS % (AUTO) 2.6 % (1.0-6.0); HEMOGLOBIN 13.7 g/dL (13.5-17.5); LYMPHOCYTES # (AUTO) 2.1 K/uL (1.0-4.8); LYMPHOCYTES % (AUTO) 35.6 % (22.0-44.0); MEAN CORPUSCULAR HEMOGLOBIN 26.9 pg (26.0-34.0); MEAN CORPUSCULAR HGB CONC 33.4 G/dL (31.0-37.0); MEAN CORPUSCULAR VOLUME 81 fL (80-100); MONOCYTES # (AUTO) 0.6 K/uL (0.1-1.0); MONOCYTES % (AUTO) 10.8 % (2.0-9.0); NEUTROPHILS % (AUTO) 49.8 % (40.0-70.0); PLATELET COUNT (AUTO) 327 K/uL (150-450); RED BLOOD CELL COUNT(AUTO) 5.09 MIL/uL (4.50-5.90); RED CELL DISTRIBUTION WIDTH 15.2 % (11.5-14.5)
[2021-05-16 08:15] VITALS: BP 106/61
[2021-05-16] MEDS: GABAPENTIN 300 MG CAPSULE PO SCH ×2 (09:31→16:31)
[2021-05-16] MEDS: AmLODIPine BESYLATE 5 MG TABLET PO SCH (09:31)
[2021-05-16] MEDS: BuPROPion HCL 75 MG TABLET PO SCH (09:32)
[2021-05-16] MEDS: LORazepam 1 MG TABLET PO PRN ×3 (09:35→21:46)
[2021-05-16 16:25] VITALS: BP 134/78
[2021-05-16] MEDS: OLANZapine 10 MG TABLET PO SCH (20:33)
[2021-05-16] MEDS: ZOLPIDEM TARTRATE 10 MG TABLET PO PRN (20:43)
[2021-05-17 01:05] VITALS: BP 125/83
[2021-05-17 07:17] LABS: ANION GAP 8 mmol/L (8-16); CALCIUM, TOTAL 8.4 mg/dL (8.8-10.5); CARBON DIOXIDE 25 mmol/L (22-29); CHLORIDE 106 mmol/L (98-107); CREATININE 0.77 mg/dL (0.60-1.30); GLOMERULAR FILTR. RATE CALC > 60 mL/min (>60); GLUCOSE,RANDOM 103 mg/dL (70-110); SODIUM SERUM 139 mmol/L (136-145); UREA NITROGEN, BLOOD 19 mg/dL (7-18)
[2021-05-17 08:26] VITALS: BP 110/61
[2021-05-17] MEDS: AmLODIPine BESYLATE 5 MG TABLET PO SCH (09:11)
[2021-05-17] MEDS: BuPROPion HCL 75 MG TABLET PO SCH (09:11)
[2021-05-17] MEDS: LORazepam 1 MG TABLET PO PRN (09:11)
[2021-05-17] MEDS: GABAPENTIN 300 MG CAPSULE PO SCH ×2 (09:15→16:28)
[2021-05-17] MEDS: LORazepam 0.5 MG TABLET PO PRN ×2 (14:55→21:36)
[2021-05-17 16:17] VITALS: BP 108/81
[2021-05-17] MEDS: OLANZapine 10 MG TABLET PO SCH (20:03)
[2021-05-17] MEDS: ZOLPIDEM TARTRATE 10 MG TABLET PO PRN (20:30)
[2021-05-17] MEDS: ACETAMINOPHEN 325 MG TABLET PO PRN (20:35)
[2021-05-18 01:03] VITALS: BP 119/79
[2021-05-18 08:28] VITALS: BP 117/70
[2021-05-18] MEDS: LORazepam 0.5 MG TABLET PO PRN ×2 (08:40→08:50)
[2021-05-18] MEDS: AmLODIPine BESYLATE 5 MG TABLET PO SCH (08:40)
[2021-05-18] MEDS: BuPROPion HCL 75 MG TABLET PO SCH (08:40)
[2021-05-18] MEDS: GABAPENTIN 300 MG CAPSULE PO SCH ×2 (08:40→16:32)
[2021-05-18 16:12] VITALS: BP 112/72
[2021-05-18] MEDS: ZOLPIDEM TARTRATE 10 MG TABLET PO PRN (19:57)
[2021-05-18] MEDS: OLANZapine 10 MG TABLET PO SCH (19:57)
[2021-05-19 00:58] VITALS: BP 120/77
[2021-05-19 08:20] VITALS: BP 121/64
[2021-05-19] MEDS: AmLODIPine BESYLATE 5 MG TABLET PO SCH (09:59)
[2021-05-19] MEDS: BuPROPion HCL 75 MG TABLET PO SCH (09:59)
[2021-05-19] MEDS: GABAPENTIN 300 MG CAPSULE PO SCH ×2 (10:00→16:28)
[2021-05-19 16:10] VITALS: BP 128/74
[2021-05-19] MEDS: OLANZapine 10 MG TABLET PO SCH (21:01)
[2021-05-19] MEDS: ZOLPIDEM TARTRATE 10 MG TABLET PO PRN (21:01)
[2021-05-20 00:20] VITALS: BP_SYST 18
[2021-05-20 08:06] VITALS: BP 115/65
[2021-05-20] MEDS: AmLODIPine BESYLATE 5 MG TABLET PO SCH (08:35)
[2021-05-20] MEDS: GABAPENTIN 300 MG CAPSULE PO SCH (08:35)
[2021-05-20] MEDS: BuPROPion HCL 75 MG TABLET PO SCH (08:35)
[2021-05-20] MEDS ORDERED: GABA-1181 PO (14:03)
[2021-05-20] MEDS ORDERED: AMLO-257 PO (14:04)
== END 2021-05-20 15:10 | disposition home or self-care (01) | DRG 750 ==
LOC: EMS 14:27 → B2S 17:12
PROVIDERS: ADMIT Psychiatry & Neurology Child & Adolescent Psychiatry; ATTEND Psychiatry & Neurology Child & Adolescent Psychiatry
DX: F25.1 Schizoaffective disorder, depressive type (principal); N17.9 Acute kidney failure, unspecified; D72.829 Elevated white blood cell count, unspecified; F10.10 Alcohol abuse, uncomplicated; F15.10 Other stimulant abuse, uncomplicated; D64.9 Anemia, unspecified; E86.0 Dehydration; Z20.822 Contact with and (suspected) exposure to COVID-19; R45.851 Suicidal ideations; I10 Essential (primary) hypertension; Z59.0 Homelessness; Z79.899 Other long term (current) drug therapy; Z86.73 Personal history of transient ischemic attack (TIA), and cerebral infarction without residual deficits
CPT/HCPCS: 80048; 80053; 80061; 84436; 84439; 85025; 87081; 99285; G0480; Q0162

== ENCOUNTER 2023-01-16 21:25 | Inpatient (IN) | payer MEDICAID ==
[~2023-01-16] VITALS: Ht 170.2 cm; Wt 93.3 kg
[~2023-01-16 21:25] MED LIST changes: +AMLO-257 PO; +BUPR-50 PO; -BUPR-93 PO
[2023-01-16] MEDS ORDERED: ZOLPIDEM TARTRATE 10 MG TABLET PO PRN (22:15)
[2023-01-16 23:35] VITALS: BP 117/77
[2023-01-17] VITALS (7 sets, daily range): BP systolic 101–146; BP diastolic 69–83
[2023-01-17] MEDS ORDERED: MAG HYDROX/AL HYDROX/SIMETH ES 30 ML SUSPENSION UDCUP PO PRN (06:00)
[2023-01-17] MEDS ORDERED: ONDANSETRON HCL 4 MG TABLET PO PRN (06:00)
[2023-01-17] MEDS ORDERED: PETROLATUM,WHITE 28 GM JELLY TP PRN (06:00)
[2023-01-17] MEDS ORDERED: CloNIDine HCL 0.1 MG TABLET PO PRN (06:00)
[2023-01-17] MEDS ORDERED: MAGNESIUM HYDROXIDE SUSPENSION 30 ML UDCUP PO PRN (06:00)
[2023-01-17] MEDS ORDERED: OMEPRAZOLE 20 MG CAPSULE PO PRN (06:00)
[2023-01-17] MEDS ORDERED: DOCUSATE SODIUM 100 MG CAPSULE PO PRN (06:00)
[2023-01-17] MEDS ORDERED: IBUPROFEN 600 MG TABLET PO PRN (06:00)
[2023-01-17] MEDS ORDERED: BACITRACIN 28 GM OINTMENT TP PRN (06:00)
[2023-01-17] MEDS ORDERED: ACETAMINOPHEN 325 MG TABLET PO PRN (06:00)
[2023-01-17] MEDS ORDERED: ALBUTEROL SULFATE HFA 90 MCG/PUFF 8 GM INHALER IH PRN (06:00)
[2023-01-17] MEDS ORDERED: LOPERAMIDE HCL 2 MG CAPSULE PO PRN (06:00)
[2023-01-17] MEDS: AmLODIPine BESYLATE 5 MG TABLET PO SCH (09:05)
[2023-01-17] MEDS: GABAPENTIN 300 MG CAPSULE PO SCH ×2 (09:05→16:49)
[2023-01-18 08:15] LABS: APPEARANCE,URINE TURBID (CLEAR); BILIRUBIN,URINE NEGATIVE (NEGATIVE); GLUCOSE, URINE (UA) NEGATIVE (NEGATIVE); LEUKOCYTE ESTERASE ,URINE NEGATIVE (NEGATIVE); NITRATE,URINE NEGATIVE (NEGATIVE); OCCULT BLOOD,URINE NEGATIVE (NEGATIVE); PROTEIN,URINE 30-70 mg/dL (NEGATIVE); SPECIFIC GRAVITIY, URINE 1.035 (1.003-1.030)
[2023-01-18 08:40] VITALS: BP 131/60
[2023-01-18] MEDS: AmLODIPine BESYLATE 5 MG TABLET PO SCH (08:44)
[2023-01-18] MEDS: GABAPENTIN 300 MG CAPSULE PO SCH ×2 (08:44→16:45)
[2023-01-18 09:25] VITALS: BP 131/59
[2023-01-18 20:26] VITALS: BP 129/86
[2023-01-19] MEDS: CITALOPRAM HYDROBROMIDE 20 MG TABLET PO SCH (08:43)
[2023-01-19] MEDS: GABAPENTIN 300 MG CAPSULE PO SCH ×2 (08:43→16:40)
[2023-01-19] MEDS: AmLODIPine BESYLATE 5 MG TABLET PO SCH (08:43)
[2023-01-19 16:17] VITALS: BP 128/75
[2023-01-19] MEDS: LORazepam 2 MG TABLET PO PRN (20:01)
[2023-01-20 06:46] VITALS: BP 136/82
[2023-01-20 08:53] VITALS: BP 121/78
[2023-01-20] MEDS: CITALOPRAM HYDROBROMIDE 20 MG TABLET PO SCH (10:07)
[2023-01-20] MEDS: GABAPENTIN 300 MG CAPSULE PO SCH ×2 (10:07→16:38)
[2023-01-20] MEDS: AmLODIPine BESYLATE 5 MG TABLET PO SCH (10:07)
[2023-01-20] MEDS: LORazepam 2 MG TABLET PO PRN ×2 (13:26→20:40)
[2023-01-20 16:16] VITALS: BP 127/81
[2023-01-21 01:24] VITALS: BP 130/78
[2023-01-21] MEDS: GABAPENTIN 300 MG CAPSULE PO SCH ×2 (08:25→16:40)
[2023-01-21] MEDS: ARIPiprazole 5 MG TABLET PO SCH (08:25)
[2023-01-21] MEDS: CITALOPRAM HYDROBROMIDE 20 MG TABLET PO SCH (08:25)
[2023-01-21] MEDS: AmLODIPine BESYLATE 5 MG TABLET PO SCH (08:25)
[2023-01-21 08:43] VITALS: BP 137/76
[2023-01-21] MEDS: LORazepam 2 MG TABLET PO PRN ×3 (11:38→22:09)
[2023-01-21 17:24] VITALS: BP 132/77
[2023-01-22 00:44] VITALS: BP 109/77
[2023-01-22] MEDS: LORazepam 2 MG TABLET PO PRN ×3 (06:16→20:36)
[2023-01-22 06:20] VITALS: BP 126/83
[2023-01-22 08:20] VITALS: BP 140/71
[2023-01-22 08:26] LABS: BASOPHILS % (AUTO) 0.5 % (0.0-2.0); EOSINOPHILS % (AUTO) 3.2 % (1.0-6.0); HEMATOCRIT 41.9 % (41-53); HEMOGLOBIN 14.4 g/dL (13.5-17.5); LYMPHOCYTES # (AUTO) 2.6 K/uL (1.0-4.8); LYMPHOCYTES % (AUTO) 31.5 % (22.0-44.0); MEAN CORPUSCULAR HEMOGLOBIN 26.7 pg (26.0-34.0); MEAN CORPUSCULAR HGB CONC 34.4 G/dL (31.0-37.0); MEAN CORPUSCULAR VOLUME 78 fL (80-100); MONOCYTES # (AUTO) 0.6 K/uL (0.1-1.0); MONOCYTES % (AUTO) 6.8 % (2.0-9.0); NEUTROPHILS # (AUTO) 4.7 K/uL (1.8-7.7); PLATELET COUNT (AUTO) 317 K/uL (150-450); RED CELL DISTRIBUTION WIDTH 14.7 % (11.5-14.5)
[2023-01-22] MEDS: GABAPENTIN 300 MG CAPSULE PO SCH ×2 (08:32→16:35)
[2023-01-22] MEDS: ARIPiprazole 5 MG TABLET PO SCH (08:32)
[2023-01-22] MEDS: CITALOPRAM HYDROBROMIDE 20 MG TABLET PO SCH (08:32)
[2023-01-22] MEDS: AmLODIPine BESYLATE 5 MG TABLET PO SCH (08:32)
[2023-01-22 08:43] LABS: HEMOGLOBIN A1C 5.2 % (3.8-5.6)
[2023-01-22 08:54] LABS: ALANINE AMINOTRANSFERASE 68 U/L (12-78); ALBUMIN 3.7 g/dL (3.4-5.0); ALKALINE PHOSPHATASE 101 U/L (46-116); ANION GAP 10 mmol/L (8-16); ASPARTATE AMINOTRANSFERASE 34 U/L (15-37); BILIRUBIN,TOTAL 0.3 mg/dL (0.1-1.0); CALCIUM, TOTAL 9.2 mg/dL (8.8-10.5); CARBON DIOXIDE 24 mmol/L (22-29); CHLORIDE 98 mmol/L (98-107); CREATININE 0.71 mg/dL (0.60-1.30); GLOMERULAR FILTR. RATE CALC > 60 mL/min (>60); GLUCOSE,RANDOM 96 mg/dL (70-110); PHOSPHORUS 3.8 mg/dL (2.5-4.9); SODIUM SERUM 132 mmol/L (136-145); TOTAL PROTEIN, SERUM 7.8 g/dL (6.4-8.2)
[2023-01-22 16:48] VITALS: BP 127/93
[2023-01-23 00:44] VITALS: BP 135/79
[2023-01-23 08:31] VITALS: BP 139/79
[2023-01-23] MEDS: GABAPENTIN 300 MG CAPSULE PO SCH ×2 (08:52→16:53)
[2023-01-23] MEDS: CITALOPRAM HYDROBROMIDE 20 MG TABLET PO SCH (08:52)
[2023-01-23] MEDS: ARIPiprazole 5 MG TABLET PO SCH (08:52)
[2023-01-23] MEDS: AmLODIPine BESYLATE 5 MG TABLET PO SCH (08:53)
[2023-01-23] MEDS ORDERED: LORazepam 1 MG TABLET PO PRN (13:45)
[2023-01-23 16:24] VITALS: BP 107/80
[2023-01-24] MEDS: GABAPENTIN 300 MG CAPSULE PO SCH ×2 (08:26→18:09)
[2023-01-24] MEDS: CITALOPRAM HYDROBROMIDE 20 MG TABLET PO SCH (08:26)
[2023-01-24] MEDS: ARIPiprazole 5 MG TABLET PO SCH (08:27)
[2023-01-24] MEDS: AmLODIPine BESYLATE 5 MG TABLET PO SCH (08:27)
[2023-01-24 08:49] VITALS: BP 114/65
[2023-01-24] MEDS: HALOPERIDOL 5 MG TABLET PO PRN (19:15)
[2023-01-24 20:39] VITALS: BP 120/74
[2023-01-25 00:05] VITALS: BP 111/63
[2023-01-25] MEDS: GABAPENTIN 300 MG CAPSULE PO SCH ×2 (08:27→17:01)
[2023-01-25] MEDS: AmLODIPine BESYLATE 5 MG TABLET PO SCH (08:27)
[2023-01-25] MEDS: CITALOPRAM HYDROBROMIDE 20 MG TABLET PO SCH (08:27)
[2023-01-25] MEDS: ARIPiprazole 5 MG TABLET PO SCH (08:33)
[2023-01-25 08:36] VITALS: BP 107/67
[2023-01-25] MEDS: HALOPERIDOL 5 MG TABLET PO PRN ×2 (08:53→20:23)
[2023-01-25 16:10] VITALS: BP 119/71
[2023-01-26 00:32] VITALS: BP 119/73
[2023-01-26] MEDS: CITALOPRAM HYDROBROMIDE 20 MG TABLET PO SCH (08:23)
[2023-01-26] MEDS: AmLODIPine BESYLATE 5 MG TABLET PO SCH (08:23)
[2023-01-26] MEDS: GABAPENTIN 300 MG CAPSULE PO SCH (08:23)
[2023-01-26] MEDS: ARIPiprazole 5 MG TABLET PO SCH (08:28)
[2023-01-26] MEDS ORDERED: ARIP5TAB37 PO (08:33)
[2023-01-26] MEDS ORDERED: CITA-144 PO (08:34)
== END 2023-01-26 11:19 | disposition home or self-care (01) | DRG 754 ==
LOC: B2S 23:29
PROVIDERS: ADMIT Psychiatry & Neurology Psychiatry; ATTEND Psychiatry & Neurology Psychiatry
DX: F32.9 Major depressive disorder, single episode, unspecified (principal); F25.9 Schizoaffective disorder, unspecified; R45.851 Suicidal ideations; F17.200 Nicotine dependence, unspecified, uncomplicated; F15.10 Other stimulant abuse, uncomplicated; F41.9 Anxiety disorder, unspecified; R45.850 Homicidal ideations; G89.29 Other chronic pain; F10.90 Alcohol use, unspecified, uncomplicated; I10 Essential (primary) hypertension; G47.00 Insomnia, unspecified; Z86.73 Personal history of transient ischemic attack (TIA), and cerebral infarction without residual deficits; Z88.8 Allergy status to other drugs, medicaments and biological substances
CPT/HCPCS: 80053; 81003; 83036; 83735; 84100; 84295; 85025; 87081